=== PATIENT | male | born 1935 | race Caucasian/White ===

== ENCOUNTER 2025-03-13 22:25 | Inpatient (IN) | payer MEDICARE, OTHER, SELFPAY ==
[2025-03-13 22:29] VITALS: BP 172/79; PULSE 88; O2SAT 98
[2025-03-13 22:30] VITALS: BP 170/77; PULSE 91; O2SAT 98
[2025-03-13 22:33] VITALS: BP 170/77; PULSE 80; RESP 18; TEMP 36.7; O2SAT 97; BMI 22.4
[2025-03-13 23:05] VITALS: PULSE 80; RESP 15
--- NOTE | 2025-03-13 23:15 | PC.NURSE ---
Received report at bedside from JORGE Braga
[2025-03-13 23:30] VITALS: PULSE 77; RESP 18; O2SAT 98
[2025-03-13 23:33] LABS: Add Manual Diff / Slide Review NO; Hematocrit 43.9 % (41-53); Hemoglobin 15.3 g/dL (13.5-17.5); Lymphocytes Absolute Auto 700 /uL (1100-4500); Mean Corpuscular HGB Conc 34.7 % (30-36); Mean Corpuscular Hemoglobin 30.1 PG (26-34); Mean Corpuscular Volume 86.7 fL (80-100); Platelet Count 253 X10^3/uL (150-400)
[2025-03-13 23:42] LABS: Alanine Aminotransferase 16 IU/L (<50); Albumin 4.2 g/dL (3.5-5.0); Albumin Globulin Ratio 1.5 (1.0-2.8); Alkaline Phosphatase 76 U/L (38-126); Blood Urea Nitrogen 29 mg/dL (9-20); Calcium 12.3 mg/dL (8.4-10.2); Carbon Dioxide 28 mmol/L (22-32); Chloride 102 mmol/L (98-107); Estimated Glomerular Filt Rate > 60 mL/min (>60); Globulin 2.8 g/dL (1.7-4.1); Glucose 126 mg/dL (70-99); HEMOLYSIS < 15 (0-50); Potassium 4.5 mmol/L (3.4-5.1); Sodium 138 mmol/L (137-145); Total Protein 7.0 g/dL (6.3-8.2)
--- NOTE | 2025-03-13 23:42 | ED.WEAKNESS ---
HPI - Weakness <Alden Fischer MD - Last Filed: 03/14/25 07:30> General Chief complaint: Weakness Stated complaint: Worsening weakness. Time Seen by Provider: 03/13/25 22:28 Source: patient and EMS Mode of arrival: EMS History of Present Illness HPI Narrative: 89-year-old male who is pending a lithotripsy on March 25 2025 at [facility]. He just finished his last dose of antibiotics yesterday for a possible kidney infection. Currently his partner feels as if she is having more trouble taking care of him at home and feels as if patient getting more demented. He does have some baseline dementia and a neurology appointment that is pending for evaluation. Related Data Home Medications ?Medication ?Instructions ?Recorded ?Confirmed finasteride 5 mg tablet 5 mg PO DAILY 03/14/25 03/14/25 sertraline 25 mg tablet 25 mg PO DAILY 03/14/25 03/14/25 tamsulosin 0.4 mg capsule 0.8 mg PO DAILY 03/14/25 03/14/25 Allergies Allergy/AdvReac Type Severity Reaction Status Date / Time No Known Drug Allergies Allergy Verified 03/15/25 11:34 Review of Systems <Alden Fischer MD - Last Filed: 03/14/25 07:30> Review of Systems ROS Unobtainable: All systems reviewed & are unremarkable except as noted in HPI and below Patient History <Alden Fischer MD - Last Filed: 03/14/25 07:30> Social History household members: spouse Smoking Status: Never smoker alcohol intake: former Exam <Alden Fischer MD - Last Filed: 03/14/25 07:30> Narrative Exam Narrative: General: Patient appears to be in no acute distress, acting appropriately Head: normocephalic, atraumatic, HEENT: Pupils equal round reactive, eyes tracking well, neck supple, no JVD Heart: regular rate and rhythm, no murmurs, rubs, or gallops heard Lungs: clear to auscultation, no adventitious sounds Abdomen: soft , nontender, nondistended, positive bowel sounds Neurological: no focal neurological signs, moving all extremities well, alert and oriented x1 Psych: has dementia and short term memory loss Initial Vital Signs Initial Vital Signs: Vital Signs Pulse Rate 88 03/13/25 22:29 Blood Pressure 172/79 H 03/13/25 22:29 Pulse Oximetry 98 03/13/25 22:29 <Grayson Aleman MD - Last Filed: 03/15/25 12:01> Initial Vital Signs Initial Vital Signs: Vital Signs Pulse Rate 88 03/13/25 22:29 Blood Pressure 172/79 H 03/13/25 22:29 Pulse Oximetry 98 03/13/25 22:29 Course <Alden Fischer MD - Last Filed: 03/14/25 07:30> Orders Ordered: Acetaminophen (Acetaminophen 325 Mg Tablet) 650 mg PO Q6H PRN PRN Reason: Fever/Mild Pain (1-3) Finasteride (Finasteride 5 Mg Tablet) 5 mg PO DAILY REPLACED BY [facility] Last Admin: 03/15/25 08:29 Dose: 5 mg Documented By: JEANIE Heparin Sodium (Porcine) (Heparin 5,000 Unit/Ml Vial) 5,000 unit SUBCUT BID REPLACED BY [facility] Last Admin: 03/15/25 08:28 Dose: 5,000 unit Documented By: Admin: 03/14/25 20:58 Dose: Not Given Documented By: Admin: 03/14/25 15:00 Dose: 5,000 unit Documented By: SY Sodium Chloride (Normal Saline 0.9%) 1,000 mls @ 100 mls/hr IV CONT REPLACED BY [facility] Last Admin: 03/15/25 08:29 Dose: 100 mls/hr Documented By: Infusion: 03/15/25 08:29 Dose: Infused Documented By: Admin: 03/14/25 23:35 Dose: 100 mls/hr Documented By: Infusion: 03/14/25 23:35 Dose: Infused Documented By: Admin: 03/14/25 14:00 Dose: 100 mls/hr Documented By: SY Ceftriaxone Sodium 1,000 mg/ (Sodium Chloride) 100 mls @ 200 mls/hr IV Q24H REPLACED BY [facility] Last Infusion: 03/15/25 09:32 Dose: Infused Documented By: Admin: 03/15/25 08:29 Dose: 200 mls/hr Documented By: JEANIE Naloxone HCl (Naloxone 0.4 Mg/Ml Vial) 0.2 mg IV Q2MIN PRN PRN Reason: Opiate Reversal Ondansetron HCl (Ondansetron 4 Mg/2 Ml Inj) 4 mg IV Q8HR PRN PRN Reason: Nausea And Vomiting Sertraline HCl (Sertraline 50 Mg Tablet) 25 mg PO DAILY REPLACED BY [facility] Last Admin: 03/15/25 08:29 Dose: 25 mg Documented By: JEANIE Tamsulosin HCl (Tamsulosin 0.4 Mg Capsule) 0.8 mg PO DAILY REPLACED BY [facility] Last Admin: 03/15/25 08:29 Dose: 0.8 mg Documented By: JEANIE Discontinued Medications Bisacodyl (Bisacodyl 10 Mg Supp) 10 mg DC NOW ONE Stop: 03/14/25 14:05 Last Admin: 03/14/25 15:03 Dose: 10 mg Documented By: SY Diphenhydramine HCl (Diphenhydramine 50 Mg/Ml Vial) 25 mg IV NOW ONE Stop: 03/14/25 05:09 Last Admin: 03/14/25 05:22 Dose: Not Given Documented By: LEONILA Droperidol (Droperidol 2.5 Mg/Ml Vial) 0.625 mg IV NOW ONE Stop: 03/14/25 13:09 Last Admin: 03/14/25 13:16 Dose: 0.625 mg Documented By: KEVIN Sodium Chloride (Normal Saline 0.9%) 500 mls @ 1,000 mls/hr IV BOLUS ONE Stop: 03/14/25 00:10 Last Infusion: 03/14/25 02:20 Dose: Infused Documented By: Admin: 03/14/25 00:51 Dose: 1,000 mls/hr Documented By: LEONILA Ceftriaxone Sodium 1,000 mg/ (Sodium Chloride) 100 mls @ 200 mls/hr IV NOW ONE Stop: 03/14/25 03:30 Last Infusion: 03/14/25 04:40 Dose: Infused Documented By: Admin: 03/14/25 04:07 Dose: 200 mls/hr Documented By: LEONILA Lactated Ringer's (Lactated Ringers) 500 mls @ 1,000 mls/hr IV BOLUS ONE Stop: 03/14/25 12:25 Last Infusion: 03/14/25 15:15 Dose: Infused Documented By: Admin: 03/14/25 14:45 Dose: 1,000 mls/hr Documented By: SY Olanzapine (Olanzapine 2.5 Mg Tablet) 5 mg PO NOW ONE Stop: 03/14/25 05:22 Last Admin: 03/14/25 05:35 Dose: 5 mg Documented By: LEONILA Vital Signs Vital signs: Vital Signs - 8 hr 03/14/25 04:30 03/14/25 04:31 03/14/25 04:31 Pulse Rate 86 98 H Respiratory Rate 34 H 29 H Blood Pressure 121/75 Pulse Oximetry 99 99 Oxygen Delivery Method Room Air Room Air 03/14/25 05:00 03/14/25 05:01 03/14/25 05:01 Pulse Rate 112 H 127 H Respiratory Rate 28 H 31 H Blood Pressure 132/70 Pulse Oximetry 98 Oxygen Delivery Method Room Air 03/14/25 07:09 03/14/25 07:30 03/14/25 08:00 Pulse Rate 88 90 Respiratory Rate 22 19 24 Blood Pressure Pulse Oximetry 98 Oxygen Delivery Method 03/14/25 08:30 03/14/25 08:34 03/14/25 08:34 Pulse Rate 76 78 Respiratory Rate 20 22 Blood Pressure 135/105 H Pulse Oximetry Oxygen Delivery Method 03/14/25 08:37 03/14/25 08:37 03/14/25 08:58 Pulse Rate 77 Respiratory Rate 26 H Blood Pressure 132/65 115/60 Pulse Oximetry Oxygen Delivery Method 03/14/25 08:58 03/14/25 09:00 03/14/25 09:00 Pulse Rate 80 69 Respiratory Rate 28 H 17 Blood Pressure 110/58 L Pulse Oximetry 97 99 Oxygen Delivery Method 03/14/25 09:30 03/14/25 09:30 03/14/25 10:04 Pulse Rate 67 62 Respiratory Rate 27 H 14 Blood Pressure 109/83 Pulse Oximetry Oxygen Delivery Method 03/14/25 10:20 03/14/25 10:20 Pulse Rate 76 Respiratory Rate 21 Blood Pressure 103/68 Pulse Oximetry Oxygen Delivery Method <Grayson Aleman MD - Last Filed: 03/15/25 12:01> Orders Ordered: Acetaminophen (Acetaminophen 325 Mg Tablet) 650 mg PO Q6H PRN PRN Reason: Fever/Mild Pain (1-3) Finasteride (Finasteride 5 Mg Tablet) 5 mg PO DAILY REPLACED BY [facility] Last Admin: 03/15/25 08:29 Dose: 5 mg Documented By: JEANIE Heparin Sodium (Porcine) (Heparin 5,000 Unit/Ml Vial) 5,000 unit SUBCUT BID REPLACED BY [facility] Last Admin: 03/15/25 08:28 Dose: 5,000 unit Documented By: Admin: 03/14/25 20:58 Dose: Not Given Documented By: Admin: 03/14/25 15:00 Dose: 5,000 unit Documented By: SY Sodium Chloride (Normal Saline 0.9%) 1,000 mls @ 100 mls/hr IV CONT REPLACED BY [facility] Last Admin: 03/15/25 08:29 Dose: 100 mls/hr Documented By: Infusion: 03/15/25 08:29 Dose: Infused Documented By: Admin: 03/14/25 23:35 Dose: 100 mls/hr Documented By: Infusion: 03/14/25 23:35 Dose: Infused Documented By: Admin: 03/14/25 14:00 Dose: 100 mls/hr Documented By: SY Ceftriaxone Sodium 1,000 mg/ (Sodium Chloride) 100 mls @ 200 mls/hr IV Q24H REPLACED BY [facility] Last Infusion: 03/15/25 09:32 Dose: Infused Documented By: Admin: 03/15/25 08:29 Dose: 200 mls/hr Documented By: JEANIE Naloxone HCl (Naloxone 0.4 Mg/Ml Vial) 0.2 mg IV Q2MIN PRN PRN Reason: Opiate Reversal Ondansetron HCl (Ondansetron 4 Mg/2 Ml Inj) 4 mg IV Q8HR PRN PRN Reason: Nausea And Vomiting Sertraline HCl (Sertraline 50 Mg Tablet) 25 mg PO DAILY REPLACED BY [facility] Last Admin: 03/15/25 08:29 Dose: 25 mg Documented By: JEANIE Tamsulosin HCl (Tamsulosin 0.4 Mg Capsule) 0.8 mg PO DAILY REPLACED BY [facility] Last Admin: 03/15/25 08:29 Dose: 0.8 mg Documented By: JEANIE Discontinued Medications Bisacodyl (Bisacodyl 10 Mg Supp) 10 mg DC NOW ONE Stop: 03/14/25 14:05 Last Admin: 03/14/25 15:03 Dose: 10 mg Documented By: SY Diphenhydramine HCl (Diphenhydramine 50 Mg/Ml Vial) 25 mg IV NOW ONE Stop: 03/14/25 05:09 Last Admin: 03/14/25 05:22 Dose: Not Given Documented By: LEONILA Droperidol (Droperidol 2.5 Mg/Ml Vial) 0.625 mg IV NOW ONE Stop: 03/14/25 13:09 Last Admin: 03/14/25 13:16 Dose: 0.625 mg Documented By: KEVIN Sodium Chloride (Normal Saline 0.9%) 500 mls @ 1,000 mls/hr IV BOLUS ONE Stop: 03/14/25 00:10 Last Infusion: 03/14/25 02:20 Dose: Infused Documented By: Admin: 03/14/25 00:51 Dose: 1,000 mls/hr Documented By: LEONILA Ceftriaxone Sodium 1,000 mg/ (Sodium Chloride) 100 mls @ 200 mls/hr IV NOW ONE Stop: 03/14/25 03:30 Last Infusion: 03/14/25 04:40 Dose: Infused Documented By: Admin: 03/14/25 04:07 Dose: 200 mls/hr Documented By: LEONILA Lactated Ringer's (Lactated Ringers) 500 mls @ 1,000 mls/hr IV BOLUS ONE Stop: 03/14/25 12:25 Last Infusion: 03/14/25 15:15 Dose: Infused Documented By: Admin: 03/14/25 14:45 Dose: 1,000 mls/hr Documented By: SY Olanzapine (Olanzapine 2.5 Mg Tablet) 5 mg PO NOW ONE Stop: 03/14/25 05:22 Last Admin: 03/14/25 05:35 Dose: 5 mg Documented By: LEONILA Vital Signs Vital signs: Vital Signs - 8 hr 03/14/25 04:30 03/14/25 04:31 03/14/25 04:31 Pulse Rate 86 98 H Respiratory Rate 34 H 29 H Blood Pressure 121/75 Pulse Oximetry 99 99 Oxygen Delivery Method Room Air Room Air 03/14/25 05:00 03/14/25 05:01 03/14/25 05:01 Pulse Rate 112 H 127 H Respiratory Rate 28 H 31 H Blood Pressure 132/70 Pulse Oximetry 98 Oxygen Delivery Method Room Air 03/14/25 07:09 03/14/25 07:30 03/14/25 08:00 Pulse Rate 88 90 Respiratory Rate 22 19 24 Blood Pressure Pulse Oximetry 98 Oxygen Delivery Method 03/14/25 08:30 03/14/25 08:34 03/14/25 08:34 Pulse Rate 76 78 Respiratory Rate 20 22 Blood Pressure 135/105 H Pulse Oximetry Oxygen Delivery Method 03/14/25 08:37 03/14/25 08:37 03/14/25 08:58 Pulse Rate 77 Respiratory Rate 26 H Blood Pressure 132/65 115/60 Pulse Oximetry Oxygen Delivery Method 03/14/25 08:58 03/14/25 09:00 03/14/25 09:00 Pulse Rate 80 69 Respiratory Rate 28 H 17 Blood Pressure 110/58 L Pulse Oximetry 97 99 Oxygen Delivery Method 03/14/25 09:30 03/14/25 09:30 03/14/25 10:04 Pulse Rate 67 62 Respiratory Rate 27 H 14 Blood Pressure 109/83 Pulse Oximetry Oxygen Delivery Method 03/14/25 10:20 03/14/25 10:20 Pulse Rate 76 Respiratory Rate 21 Blood Pressure 103/68 Pulse Oximetry Oxygen Delivery Method 03/14/2025, 12 14th p.m.. I got out this morning from my colleague to follow up bladder retention. The urologist was call to help for catheter placement. His CBC showed WBC 11.6 otherwise normal CBC. His BMP showed BUN 29, calcium 12.3 otherwise normal BNP. His LFT was normal. His ammonia was normal. His UA showed UTI. His chest x-ray showed no acute finding. 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 I went to talk to his and got more started the patient was brought in today for increasing confusion from the baseline dementia and diarrhea for 5 days seen after ciprofloxacin for UTI. He had bilateral ureteric stent placement 4 weeks ago and supposed to see urologist again on 03/25/2025. His white noticed decreased urine output since yesterday. I discussed the case with our hospitalist and the patient was accepted to the hospital for hypercalcemia, stercoral colitis, increased confusion, UTI. MDM - Weakness <Alden Fischer MD - Last Filed: 03/14/25 07:30> Lab Data 03/15/25 05:50 03/15/25 05:50 Labs: Lab Results 03/13/25 03/13/25 03/14/25 Range/Units 23:00 23:50 03:02 WBC 11.6 H (4.5-11.0) X10^3/uL RBC 5.07 (4.5-5.9) X10^6/uL Hgb 15.3 (13.5-17.5) g/dL Hct 43.9 (41-53) % MCV 86.7 (80-100) fL MCH 30.1 (26-34) PG MCHC 34.7 (30-36) % RDW 13.4 (11.6-14.8) % Plt Count 253 (150-400) X10^3/uL Neut % (Auto) 85.5 H (50-75) % Lymph % (Auto) 6.4 L (25-40) % [place] % (Auto) 7.7 (3-14) % Eos % (Auto) 0.2 L (2-4) % Baso % (Auto) 0.2 (0-2) % Neut # (Auto) 9900 H (0198-2550) /uL Lymph # (Auto) 700 L (9116-7580) /uL [place] # (Auto) 900 (0-900) /uL Eos # (Auto) 0 (0-450) /uL Baso # (Auto) 0 (0-100) /uL Sodium 138 (137-145) mmol/L Potassium 4.5 (3.4-5.1) mmol/L Chloride 102 (98-107) mmol/L Carbon Dioxide 28 (22-32) mmol/L BUN 29 H (9-20) mg/dL Creatinine 1.05 (0.66-1.25) mg/dL Estimated GFR > 60 (>60) mL/min BUN/Creatinine Ratio 27.6 H (6-22) Glucose 126 H (70-99) mg/dL Lactate 1.0 (0.7-2.1) mmol/L Calcium 12.3 H (8.4-10.2) mg/dL Total Bilirubin 1.0 (0.2-1.3) mg/dL AST 24 (17-59) IU/L ALT 16 (<50) IU/L Alkaline Phosphatase 76 (38-126) U/L Ammonia < 9 L (9-30) umol/L Total Protein 7.0 (6.3-8.2) g/dL Albumin 4.2 (3.5-5.0) g/dL Globulin 2.8 (1.7-4.1) g/dL Albumin/Globulin Ratio 1.5 (1.0-2.8) Urine RBC >100/hpf H (0-5/HPF) Urine WBC 30-100/hpf H (0-5/HPF) Ur Squamous Epith Cells 0-1 /hpf (0-5/HPF) Ur Transition Epith Cell 0-1/hpf (0-5/HPF) Calcium Oxalate Crystal Occasional H Urine Bacteria Moderate (10-30) H (None) Ur Culture Indicated? Specimen cultured Vol Urine Centrifuged 10ml (spun) Urine Dip Bedside Urine Glucose Negative Bedside Urine Bilirubin - Negative Bedside Urine Ketone +/- 5 Urine Specific [place] 1.030 Bedside Urine Occult Blood +++ Bedside Urine pH 6.0 Bedside Urine Protein +++ 300 Bedside Urine Urobilinogen - Negative Bedside Urine Nitrite - Negative Bedside Urine Leukocytes + 70 Esterase MDM Narrative Medical decision making narrative: 89-year-old male who is pending a lithotripsy. Patient has some baseline dementia but his partner fell as if his dementia was worsening. Patient was found to have over a L of of fluid from the bladder scan. Multiple attempts were made to get a Luna catheter placed but were unsuccessful. Patient was kept here overnight in order the consult our urologist for potential Luna catheter placement. Patient is signed out to next physician Dr. Medina <Grayson Aleman MD - Last Filed: 03/15/25 12:01> Lab Data Labs: Lab Results 03/13/25 03/13/25 03/14/25 Range/Units 23:00 23:50 03:02 WBC 11.6 H (4.5-11.0) X10^3/uL RBC 5.07 (4.5-5.9) X10^6/uL Hgb 15.3 (13.5-17.5) g/dL Hct 43.9 (41-53) % MCV 86.7 (80-100) fL MCH 30.1 (26-34) PG MCHC 34.7 (30-36) % RDW 13.4 (11.6-14.8) % Plt Count 253 (150-400) X10^3/uL Neut % (Auto) 85.5 H (50-75) % Lymph % (Auto) 6.4 L (25-40) % [place] % (Auto) 7.7 (3-14) % Eos % (Auto) 0.2 L (2-4) % Baso % (Auto) 0.2 (0-2) % Neut # (Auto) 9900 H (4027-4919) /uL Lymph # (Auto) 700 L (0619-7883) /uL [place] # (Auto) 900 (0-900) /uL Eos # (Auto) 0 (0-450) /uL Baso # (Auto) 0 (0-100) /uL Sodium 138 (137-145) mmol/L Potassium 4.5 (3.4-5.1) mmol/L Chloride 102 (98-107) mmol/L Carbon Dioxide 28 (22-32) mmol/L BUN 29 H (9-20) mg/dL Creatinine 1.05 (0.66-1.25) mg/dL Estimated GFR > 60 (>60) mL/min BUN/Creatinine Ratio 27.6 H (6-22) Glucose 126 H (70-99) mg/dL Lactate 1.0 (0.7-2.1) mmol/L Calcium 12.3 H (8.4-10.2) mg/dL Total Bilirubin 1.0 (0.2-1.3) mg/dL AST 24 (17-59) IU/L ALT 16 (<50) IU/L Alkaline Phosphatase 76 (38-126) U/L Ammonia < 9 L (9-30) umol/L Total Protein 7.0 (6.3-8.2) g/dL Albumin 4.2 (3.5-5.0) g/dL Globulin 2.8 (1.7-4.1) g/dL Albumin/Globulin Ratio 1.5 (1.0-2.8) Urine RBC >100/hpf H (0-5/HPF) Urine WBC 30-100/hpf H (0-5/HPF) Ur Squamous Epith Cells 0-1 /hpf (0-5/HPF) Ur Transition Epith Cell 0-1/hpf (0-5/HPF) Calcium Oxalate Crystal Occasional H Urine Bacteria Moderate (10-30) H (None) Ur Culture Indicated? Specimen cultured Vol Urine Centrifuged 10ml (spun) Urine Dip Bedside Urine Glucose Negative Bedside Urine Bilirubin - Negative Bedside Urine Ketone +/- 5 Urine Specific [place] 1.030 Bedside Urine Occult Blood +++ Bedside Urine pH 6.0 Bedside Urine Protein +++ 300 Bedside Urine Urobilinogen - Negative Bedside Urine Nitrite - Negative Bedside Urine Leukocytes + 70 Esterase MDM Narrative Medical decision making narrative: 89-year-old male who is pending a lithotripsy. Patient has some baseline dementia but his partner fell as if his dementia was worsening. Patient was found to have over a L of of fluid from the bladder scan. Multiple attempts were made to get a Luna catheter placed but were unsuccessful. Patient was kept here overnight in order the consult our urologist for potential Luna catheter placement. Patient is signed out to next physician Dr. Medina 03/14/2025, 12 14th p.m.. I got out this morning from my colleague to follow up bladder retention. The urologist was call to help for catheter placement. His CBC showed WBC 11.6 otherwise normal CBC. His BMP showed BUN 29, calcium 12.3 otherwise normal BNP. His LFT was normal. His ammonia was normal. His UA showed UTI. His chest x-ray showed no acute finding. 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 I went to talk to his and got more started the patient was brought in today for increasing confusion from the baseline dementia and diarrhea for 5 days seen after ciprofloxacin for UTI. He had bilateral ureteric stent placement 4 weeks ago and supposed to see urologist again on 03/25/2025. His white noticed decreased urine output since yesterday. I discussed the case with our hospitalist and the patient was accepted to the hospital for hypercalcemia, stercoral colitis, increased confusion, UTI. Discharge Plan Departure Patient Disposition: Admitted as Observation Clinical Impression: Hypercalcemia, Acute UTI, Stercoral colitis, Confusion Admit Date/Time: 03/14/25 12:33 Admit Provider: Venkatesh Luna
[2025-03-13 23:43] LABS: Lactate (Lactic Acid) 1.0 mmol/L (0.7-2.1)
[2025-03-14] VITALS (36 sets, daily range): BP systolic 103–153; BP diastolic 52–105; PULSE 58–127; RESP 14–34; TEMP 36.8; O2SAT 97–100; BMI 22.4
[2025-03-14 00:13] LABS: Ammonia (NH3) < 9 umol/L (9-30)
[2025-03-14] MEDS: SODIUM CHLORIDE 0.9% 500 ML 1000 ML IV (00:51)
--- NOTE | 2025-03-14 01:30 | PC.NURSE ---
RN attempted to insert 16 israeli hammond. Insertion was unsuccessful as resistance was met. RN attempted to insert 14 israeli coude hammond, insertion was once again unsuccessful due to resistance.
[2025-03-14 03:15] LABS: Culture Indicated Urine Specimen Cultured
--- NOTE | 2025-03-14 08:15 | P.CONS_ITS ---
History of Present Illness Consult details Date Patient Seen: 03/14/25 Time Patient Seen: 07:45 Chief complaint: Worsening weakness. Reason for consult: Urinary retention, difficult hammond catheter placement Narrative: 89 y/o M brought into ER for evaluation of worsening weakness and dementia. He is followed by Urology clinic at [facility]. He is very confused and not able to answer questions. His evaluation at ER was notable for a WBC of 11.6, sCr of 1.05 and urinary retention. Multiple attempts were made by nursing staff to place a hammond catheter, Urology was ultimately consulted for assistance. Meds Home Medications and Allergies Home Medications ?Medication ?Instructions ?Recorded ?Confirmed ?Type ciprofloxacin HCl 500 mg tablet 500 mg PO BID 7 days # 0 tabs 05/12/16 Rx (Cipro) Allergies Allergy/AdvReac Type Severity Reaction Status Date / Time No Allergy Information Allergy Unverified 03/13/25 22:33 Available Review of Systems Review of Systems Narrative: Unable to obtain secondary to his dementia Exam Vital Signs (past 8 hours): - 03/14/25 00:30 03/14/25 01:00 03/14/25 01:30 Pulse Rate 80 74 81 Respiratory Rate 21 28 H 22 Blood Pressure Pulse Oximetry 97 97 Oxygen Delivery Method Room Air Room Air 03/14/25 02:00 03/14/25 02:30 03/14/25 02:32 Pulse Rate 80 77 Respiratory Rate 20 19 Blood Pressure 153/72 H Pulse Oximetry 99 Oxygen Delivery Method Room Air 03/14/25 02:32 03/14/25 02:33 03/14/25 02:33 Pulse Rate 91 H 91 H Respiratory Rate 19 21 Blood Pressure 141/72 H Pulse Oximetry 98 98 Oxygen Delivery Method Room Air Room Air 03/14/25 02:34 03/14/25 02:34 03/14/25 02:40 Pulse Rate 91 H 87 Respiratory Rate 25 H 21 Blood Pressure 150/70 H Pulse Oximetry 98 99 Oxygen Delivery Method Room Air Room Air 03/14/25 02:40 03/14/25 02:41 03/14/25 02:41 Pulse Rate 88 Respiratory Rate 17 Blood Pressure 136/97 H 153/92 H Pulse Oximetry 100 Oxygen Delivery Method Room Air 03/14/25 04:19 03/14/25 04:22 03/14/25 04:22 Pulse Rate 85 83 Respiratory Rate 15 15 Blood Pressure 119/79 Pulse Oximetry 97 Oxygen Delivery Method Room Air 03/14/25 04:30 03/14/25 04:31 03/14/25 04:31 Pulse Rate 86 98 H Respiratory Rate 34 H 29 H Blood Pressure 121/75 Pulse Oximetry 99 99 Oxygen Delivery Method Room Air Room Air 03/14/25 05:00 03/14/25 05:01 03/14/25 05:01 Pulse Rate 112 H 127 H Respiratory Rate 28 H 31 H Blood Pressure 132/70 Pulse Oximetry 98 Oxygen Delivery Method Room Air Oxygen Delivery Method Room Air Narrative Exam Narrative: GEN: Alert and oriented X3. No acute distress. Well-nourished. EYES: PERRLA, EOMI. HENT: Moist mucus membranes, no scleral icterus, normal neck ROM. RESP: Unlabored breathing, equal rise and fall of chest bilaterally, no cyanosis appreciated. CV: No peripheral edema, unremarkable heart rate. ABD: Soft, non-tender, non-distended, no palpable masses. : Uncircumcised penis, no urethral discharge, no meatal stenosis. Unsuccessful attempt at placement of an 18Fr coude catheter. Using the 16Fr flexible cystoscope, this was advanced into his bladder. 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 A 0.035 sensor tip ureteral guidewire was then advanced through the cystoscope and into his bladder. The cystoscope was removed and a 16Fr [place] tip catheter was advanced over the guidewire and into his bladder. Drainage of more than 1L of clear yellow urine was noted. 10cc of sterile water was utilized for balloon insufflation. EXT: No edema, clubbing or cyanosis. SKIN: No rashes or lesions. NEURO: No focal neurologic deficits, CN II-XII grossly intact. PSYCH: Cooperative, appropriate mood and affect. Objective Labs 03/13/25 23:00 03/13/25 23:00 Labs: Laboratory Results - last 24 hr 03/13/25 03/13/25 03/14/25 23:00 23:50 03:02 WBC 11.6 H RBC 5.07 Hgb 15.3 Hct 43.9 MCV 86.7 MCH 30.1 MCHC 34.7 RDW 13.4 Plt Count 253 Neut % (Auto) 85.5 H Lymph % (Auto) 6.4 L [place] % (Auto) 7.7 Eos % (Auto) 0.2 L Baso % (Auto) 0.2 Neut # (Auto) 9900 H Lymph # (Auto) 700 L [place] # (Auto) 900 Eos # (Auto) 0 Baso # (Auto) 0 Sodium 138 Potassium 4.5 Chloride 102 Carbon Dioxide 28 BUN 29 H Creatinine 1.05 Estimated GFR > 60 BUN/Creatinine Ratio 27.6 H Glucose 126 H Lactate 1.0 Calcium 12.3 H Total Bilirubin 1.0 AST 24 ALT 16 Alkaline Phosphatase 76 Ammonia < 9 L Total Protein 7.0 Albumin 4.2 Globulin 2.8 Albumin/Globulin Ratio 1.5 Urine RBC >100/hpf H Urine WBC 30-100/hpf H Ur Squamous Epith Cells 0-1 /hpf Ur Transition Epith Cell 0-1/hpf Calcium Oxalate Crystal Occasional H Urine Bacteria Moderate (10-30) H Ur Culture Indicated? 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 Recommend bladder and urethral rest for the next 10-14 days. Has scheduled follow-up with Urology at [facility]. They will manage his hammond catheter moving forward, unless he would prefer [facility]. Time-Based Coding :: [TOTAL MINUTES] spent with patient and on the chart (including review of chart, obtaining history, exam, reviewing outside data, placing orders, documenting exam and treatment plan, and counseling patient) on [DATE]. PROFEE Charge Codes Inpatient or Observation consultation: [id number]
--- NOTE | 2025-03-14 08:20 | P.PCN_ITS ---
Procedures Date/Time Date of procedure: 03/14/25 Time of procedure: 08:00 General Procedure description: Cystoscopy: CPT Code 03911 Indication: 89 y/o M w/ urinary retention and difficult hammond catheter placement. Unable to obtain consent secondary to his dementia, proper positioning and standard sterile prep technique, 10cc of topical lidocaine gel was inserted into the urethra and a penile clamp was placed to allow for local anesthetic. The 16Fr flexible cystoscope was inserted into his urethra and easily advanced into his bladder. 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 A 0.035 sensor tip ureteral guidewire was then advanced through the cystoscope to aid in placement of a 16Fr napaimute tip catheter. Drainage of more than 1L of clear yellow urine was noted. He tolerated the procedure well without any complications. Complications: none IH PROFEE Cable Worker Helper Document charge(s): Yes
--- NOTE | 2025-03-14 08:30 | DI.RAD.S_ITS ---
PROCEDURE: XR CHEST 1V INDICATIONS: Generalized weakness TECHNIQUE: One view of the chest was acquired. COMPARISON: None. FINDINGS: Surgical changes and devices: None. Lungs and pleura: Lungs are clear. No pleural effusions or pneumothorax. Mediastinum: Mediastinal contours appear normal. Heart size is normal. Bones and chest wall: No suspicious bony lesions. Overlying soft tissues appear unremarkable. IMPRESSION: No acute cardiopulmonary abnormality is seen. Dictated by: Joni Campbell M.D. on 03/14/2025 at 8:52 Approved by: Joni Campbell M.D. on 03/14/2025 at 8:52
--- NOTE | 2025-03-14 08:30 | DI.CT.S_ITS ---
PROCEDURE: CT ABDOMEN PELVIS W CON INDICATIONS: Bladder retention. UTI. Generalized weakness TECHNIQUE: After the administration of intravenous contrast, axial sections acquired from the lung bases to the pubic symphysis. Coronal and sagittal reformats were performed. For radiation dose reduction, the following was used: automated exposure control, adjustment of mA and/or kV according to patient size. COMPARISON: [facility], CT, CT KUB, 02/07/2025, 14:26. FINDINGS: Image quality: Diagnostic. Lower Chest: No significant findings. ABDOMEN: Liver: No solid mass. Gallbladder: No radiopaque gallstones or wall thickening. Biliary ducts: No biliary dilation. Pancreas: No ductal dilation. Spleen: Size is within normal limits. Adrenal Glands: No adrenal nodules. Kidneys and Ureters: Interval placement of bilateral double-J ureteral stents. A previous relatively large proximal right ureteral stone has been pushed back up into the lower pole calyx Left ureteral stones are present. There is no residual hydronephrosis. There is inflammatory change in the fat and mild inflammatory fluid at the level of the right renal pelvis and proximal right ureter, potentially related to sequelae of stone removal. There is some inflammatory change in the fat surrounding the proximal left ureter, also likely related to treatment with ureteral stent placement. There are residual bilateral nonobstructing renal parenchymal stones. Stomach and Bowel: Normal colonic caliber, without significant wall thickening. Moderately large fecal impaction in the rectum with associated stercoral colitis. Peritoneum: No abnormal intraperitoneal fluid. No free air. Ventral Wall: No significant ventral hernia. Abdominal Nodes: No retroperitoneal or mesenteric adenopathy by size criteria. Vessels: Aorta and inferior vena cava are normal in size. PELVIS: Pelvic Organs: Prostatomegaly. Bladder: A Luna catheter decompresses the bladder. Bilateral ureteral stents terminate in the bladder. Pelvic Nodes: No enlarged lymph nodes. Miscellaneous: Small bilateral fat containing inguinal hernias are seen. Bones: No aggressive osseous abnormality. Total right hip arthroplasty. Lumbar degenerative change. 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 IMPRESSION: 1. A Luna catheter decompresses the bladder completely. There are bilateral ureteral stents terminating in the bladder. 2. Status post bilateral double-J ureteral stent placement with resolution of hydronephrosis. A large right sided stone was previously in the proximal ureter, but is now in a lower pole calyx. There are left ureteral stones along the course of the ureteral stent. There is inflammatory change in the surrounding fat subjacent to the ureters, right greater than left, likely related to treatment. 3. Moderately large rectal fecal impaction with associated stercoral colitis. 4. Prostatomegaly. 5. 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 Dictated by: Joni Campbell M.D. on 03/14/2025 at 10:43 Approved by: Joni Campbell M.D. on 03/14/2025 at 10:56
--- NOTE | 2025-03-14 12:45 | PC.NURSE ---
Patient not able to sit still for CT scan, patient is brought back to room. Patient is trying to pull at lines, Provider puts in order for droperidol
[2025-03-14] MEDS: droPERidol 2.5 MG/ML VIAL 0.625 MG IV (13:16)
--- NOTE | 2025-03-14 13:35 | PM.HP.1 ---
History of Present Illness History of Present Illness Date Patient Seen: 03/14/25 Time Patient Seen: 14:04 Chief complaint: Worsening weakness. Narrative: The patient was a an 89-year-old male who was brought in for weakness. He was status post bilateral ureter stent placement at [facility] 4 weeks ago. The patient was followed by Dr. Sanders of Urology. In the emergency department, he was found to have evidence of urine retention. A Luna can not be placed and Urology performed cystoscopy and placed a catheter over a wire with 1 L of urine out. Imaging revealed hydroureter nephrosis as well as evidence of constipation and large rectal fecal burden. He was takes care of him, notes he has been weak for the last several days and had anorexia. The patient does have severe dementia and really can not communicate. He does appear comfortable. [facility] Social History household members: spouse Meds Home Medications and Allergies Home Medications ?Medication ?Instructions ?Recorded ?Confirmed ?Type ciprofloxacin HCl 500 mg tablet 500 mg PO BID 7 days #0 tabs 05/12/16 Rx (Cipro) Allergies Allergy/AdvReac Type Severity Reaction Status Date / Time No Allergy Information Allergy Unverified 03/13/25 22:33 Available Review of Systems Review of Systems Narrative: Not obtainable due to cognition. Exam Vital Signs (past 8 hours): - 03/14/25 07:09 03/14/25 07:30 03/14/25 08:00 Pulse Rate 88 90 Respiratory Rate 22 19 24 Blood Pressure Pulse Oximetry 98 03/14/25 08:30 03/14/25 08:34 03/14/25 08:34 Pulse Rate 76 78 Respiratory Rate 20 22 Blood Pressure 135/105 H Pulse Oximetry 03/14/25 08:37 03/14/25 08:37 03/14/25 08:58 Pulse Rate 77 Respiratory Rate 26 H Blood Pressure 132/65 115/60 Pulse Oximetry 03/14/25 08:58 03/14/25 09:00 03/14/25 09:00 Pulse Rate 80 69 Respiratory Rate 28 H 17 Blood Pressure 110/58 L Pulse Oximetry 97 99 03/14/25 09:30 03/14/25 09:30 03/14/25 10:04 Pulse Rate 67 62 Respiratory Rate 14 Blood Pressure 109/83 Pulse Oximetry 03/14/25 10:20 03/14/25 10:20 03/14/25 10:30 Pulse Rate 76 81 Respiratory Rate 21 22 Blood Pressure 103/68 Pulse Oximetry 03/14/25 11:00 03/14/25 11:01 03/14/25 11:01 Pulse Rate 73 61 Respiratory Rate 22 Blood Pressure 105/79 Pulse Oximetry 03/14/25 11:30 03/14/25 11:30 03/14/25 12:00 Pulse Rate 58 L 60 Respiratory Rate 17 19 Blood Pressure 108/55 L Pulse Oximetry 03/14/25 12:00 03/14/25 12:30 03/14/25 13:16 Pulse Rate 59 L 98 H Respiratory Rate 16 23 Blood Pressure 105/52 L Pulse Oximetry 98 03/14/25 13:16 Pulse Rate Respiratory Rate Blood Pressure 126/73 Pulse Oximetry Oxygen Delivery Method Room Air Narrative Exam Narrative: Relatively minimal communication verbally, alert and oriented, fluent speech, calm. Normocephalic skull, EOMI, anicteric sclera, symmetric pupils. Oropharynx unremarkable, no droop. Neck supple, midline trachea, no adenopathy. Lungs clear, normal rate and effort. Heart regular, no murmur gallop or rub. Abdomen is soft, non distended and non tender. Extremities are free of edema. Skin is free of rash or lesions. Joints are not swollen or deformed. Judgment appears to be normal. Objective Imaging Multiple studies:: Radiologist's impression: Chest x-ray: No acute cardiopulmonary abnormality is seen. Abdomen pelvis CT: 1. A Luna catheter decompresses the bladder completely. There are bilateral ureteral stents terminating in the bladder. 2. Status post bilateral double-J ureteral stent placement with resolution of hydronephrosis. A large right sided stone was previously in the proximal ureter, but is now in a lower pole calyx. There are left ureteral stones along the course of the ureteral stent. There is inflammatory change in the surrounding fat subjacent to the ureters, right greater than left, likely related to treatment. 3. Moderately large rectal fecal impaction with associated stercoral colitis. 4. Prostatomegaly. 5. 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 Labs 03/13/25 23:00 03/13/25 23:00 Labs: Laboratory Results - last 24 hr 03/13/25 03/13/25 03/14/25 23:00 23:50 03:02 WBC 11.6 H RBC 5.07 Hgb 15.3 Hct 43.9 MCV 86.7 MCH 30.1 MCHC 34.7 RDW 13.4 Plt Count 253 Neut % (Auto) 85.5 H Lymph % (Auto) 6.4 L [place] % (Auto) 7.7 Eos % (Auto) 0.2 L Baso % (Auto) 0.2 Neut # (Auto) 9900 H Lymph # (Auto) 700 L [place] # (Auto) 900 Eos # (Auto) 0 Baso # (Auto) 0 Sodium 138 Potassium 4.5 Chloride 102 Carbon Dioxide 28 BUN 29 H Creatinine 1.05 Estimated GFR > 60 BUN/Creatinine Ratio 27.6 H Glucose 126 H Lactate 1.0 Calcium 12.3 H Total Bilirubin 1.0 AST 24 ALT 16 Alkaline Phosphatase 76 Ammonia < 9 L Total Protein 7.0 Albumin 4.2 Globulin 2.8 Albumin/Globulin Ratio 1.5 Urine RBC >100/hpf H Urine WBC 30-100/hpf H Ur Squamous Epith Cells 0-1 /hpf Ur Transition Epith Cell 0-1/hpf Calcium Oxalate Crystal Occasional H Urine Bacteria Moderate (10-30) H Ur Culture Indicated? Specimen cultured Vol Urine Centrifuged 10ml (spun) Assessment & Plan Assessment & Plan narrative: 1. UTI, active. 2. Urine retention necessitating placement of Luna catheter with 1 L output, active. 3. Constipation with large rectal fecal burden, active. 4. Nephrolithiasis with recent bilateral stent placement at [facility]. 5. Severe dementia, active. PLAN: -IV fluids for volume depletion -Luna catheter for retention -ceftriaxone for urinary tract infection and monitor cultures. -old records from [facility] -Dulcolax suppository -notify Dr. Whitley of Urology of the patient was admission. Reviewed a POLST with the patient's , she had not seen this before. She was proxy decision maker. He was currently full code. She will review this overnight and we will discuss again tomorrow. Anticipate 1 midnight in the hospital, supports observation status. Time-Based Coding :: 35 min spent with patient and on the chart (including review of chart, obtaining history, exam, reviewing outside data, placing orders, documenting exam and treatment plan, and counseling patient) on 03/14. Quality MIPS - Admit I confirm the patient?s Advance Care Plan is present, Code status is documented, Surrogate decision maker is in patient?s record [If Yes, STOP here]: Yes MIPS - Meds 'Current medications' to include all prescriptions, [id number] products, herbals, cannabis/cannabidiol products, and vitamin/mineral/dietary (nutritional) supplements. I have utilized all available resources to obtain, update, or review the patient?s current medications. [If Yes, STOP here]: Yes
[2025-03-14] MEDS: SODIUM CHLORIDE 0.9% 1,000 ML 100 ML IV ×2 (14:00→23:35)
[2025-03-14] MEDS: LACTATED RINGERS 500 ML 1000 ML IV (14:45)
--- NOTE | 2025-03-14 14:53 | CM.DANOTE ---
DCP Assessment Note: Pt is a 89yo male, resident of [place], is admitted for stercoral colitis and acute UTI. Pt lives in a house with , Rylie. Pt's Primary Care Provider is Dr. Dario Villar and insurance is Medicare and for Life. Reviewed chart and discussed with multidisciplinary team pt's medical status and initial discharge needs. Per ED Provider, pt to be admitted for IV abx, hammond placed and Urology consult. DCP met w/patient at bedside; introduced self and role. Pt somnolent during assessment, pt requested to voice concerns with Operations Analyst. Pt , Rylie, states she has been concerned for pt as he has declined in mobility and cognizance in the last few days. reports this started when pt completed prescribed PO antibiotic on Friday, 03/12. Patient states pt typically utilizes a FWW to get around the house. Pt reports the following pre-scheduled appts: - Lithotripsy scheduled at [facility] with Dr. Kirt Maldonado on 03/25/25 for kidney stones. 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 PROFESSIONAL ENGINEER discussed plan of care with , pt stated preference for SNF Rehab to get pt back to baseline; states the senior living goal is to keep pt at home with her as primary caregiver (no resources for senior living care placement at this time). PROFESSIONAL ENGINEER reviewed Medicare Choice List and pt states her main preference would be to remain on [facility] if possible. Pt hopeful lithotripsy will be moved to a sooner date. Plan: Anticipating SNF Rehab vs. Home with Home health, plan of care evolving. Pt can transport home. CM team will follow closely for coordination of discharge plans. PITO [place] Discharge Planning/Care Management CM Discharge Assessment Start: 03/14/25 12:37 Freq: Status: Active Protocol: Document 03/14/25 13:02 MW (Rec: 03/14/25 13:08 MW [id number]) Discharge Planning Assessment Assigned Discharge THEODORE Thornton Auto Painter Provider Dr. Dario Villar ([facility]) Insurance Medicare, DPOA/Assigned Rylie, Spouse Designee Name Contact Information Advance Directives? No Has Patient been No admitted in last 30 days? Prior Living House Arrangements Comment [facility] Household Members spouse Type of Relies on Others transporation used prior to admit Independent with ADL No 's Is patient alert and No oriented? Caregiver for No Another DME Already Rented / FWW / Walker,Cane Owned Patient/Family Fdc Facility Preference Discharge Plan Fdc Facility Review Status In Process Please Provide Date 03/14/25 Initial DC Assessment Was Performed Next Review Type Continued Stay Review
[2025-03-14] MEDS: HEPARIN 5,000 UNIT/ML VIAL 5000 UNIT SUBCUT (15:00)
[2025-03-14] MEDS: BISACODYL 10 MG SUPP PR (15:03)
[2025-03-14 16:09] LABS: MRSA (Nasal) PCR NOT DETECTED (Not Detect)
[2025-03-15 06:03] LABS: Add Manual Diff / Slide Review NO; Hematocrit 37.5 % (41-53); Hemoglobin 13.2 g/dL (13.5-17.5); Lymphocytes Absolute Auto 700 /uL (1100-4500); Mean Corpuscular HGB Conc 35.1 % (30-36); Mean Corpuscular Hemoglobin 30.5 PG (26-34); Mean Corpuscular Volume 86.9 fL (80-100); Platelet Count 166 X10^3/uL (150-400)
--- NOTE | 2025-03-15 06:14 | PC.NURSE ---
night warehouse selector RN note pt A&O to self only, impulsive, frequently attempting to get out of bed, bed alarm on, x2 max assist to bedside commode for frequent loose stools, frequent cueing needed to direct pt in care activities, baseline foot drop bilat, gait belt and walker used, hammond draining mod amt davon/blood tinged urine for retention, periph IV site patent with IV fluids infusing, pt denies pain, turned q2h, pt declined heparin SQ at HS, educated on risks/benefits, labs as ordered, care ongoing
[2025-03-15 06:17] LABS: Blood Urea Nitrogen 22 mg/dL (9-20); Calcium 10.6 mg/dL (8.4-10.2); Carbon Dioxide 29 mmol/L (22-32); Chloride 108 mmol/L (98-107); Estimated Glomerular Filt Rate > 60 mL/min (>60); Glucose 88 mg/dL (70-99); HEMOLYSIS < 15 (0-50); Potassium 4.3 mmol/L (3.4-5.1); Sodium 140 mmol/L (137-145)
[2025-03-15 07:00] VITALS: BP 129/97; PULSE 88; RESP 16; TEMP 36.6; O2SAT 97
--- NOTE | 2025-03-15 07:43 | PM.PN.1 ---
Subjective Subjective Interval history: Summary: The patient was a an 89-year-old male who was brought in for weakness. He was status post bilateral ureter stent placement at [facility] 4 weeks ago. The patient was followed by Dr. Sanders of Urology. In the emergency department, he was found to have evidence of urine retention. A Luna can not be placed and Urology performed cystoscopy and placed a catheter over a wire with 1 L of urine out. Imaging revealed hydroureter nephrosis as well as evidence of constipation and large rectal fecal burden. He was takes care of him, notes he has been weak for the last several days and had anorexia. The patient does have severe dementia and really can not communicate. He does appear comfortable. S: He was comfortable, no overnight events. O: VSS. NAD, alert and oriented. Fluent speech. Lungs are clear, normal rate and effort. Heart is regular, no murmur gallop or rub. Abdomen is soft, non distended. Extremities are free of edema. IMAGING: Chest x-ray: No acute cardiopulmonary abnormality is seen. Abdomen pelvis CT: 1. A Luna catheter decompresses the bladder completely. There are bilateral ureteral stents terminating in the bladder. 2. Status post bilateral double-J ureteral stent placement with resolution of hydronephrosis. A large right sided stone was previously in the proximal ureter, but is now in a lower pole calyx. There are left ureteral stones along the course of the ureteral stent. There is inflammatory change in the surrounding fat subjacent to the ureters, right greater than left, likely related to treatment. 3. Moderately large rectal fecal impaction with associated stercoral colitis. 4. Prostatomegaly. 5. 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 A/P: 1. UTI, active. Cr Cx no growth today. Will monitor Cx for another 24 hours. 2. Urine retention necessitating placement of Luna catheter with 1 L output, active. 3. Constipation with large rectal fecal burden, active. 4. Nephrolithiasis with recent bilateral stent placement at [facility]. 5. Severe dementia, active. 6. 226- Severe chronic protein calorie malnutrition r/t decreased appetite/ability to consume adequate intake as evidenced by severe dementia, 14% weight loss in 1 month (severe) and <50% of estimated energy intake for 1 month (severe) PLAN: -DC IV fluids. -Luna catheter for retention (continue Flomax and finasteride). -ceftriaxone for urinary tract infection and monitor cultures. -old records from [facility] -Dulcolax suppository -notify Dr. Maldonado ([facility]) of Urology of the patient was admission. -evaluating for residential facility discharge. Full code, discussed at admission. is proxy decision maker. Exam Vital Signs (past 8 hours): Oxygen Delivery Method Room Air Oxygen Flow Rate 0 Objective Labs 03/15/25 05:50 03/15/25 05:50 Labs: Laboratory Results - last 24 hr 03/14/25 03/15/25 14:40 05:50 WBC 7.0 RBC 4.32 L Hgb 13.2 L Hct 37.5 L MCV 86.9 MCH 30.5 MCHC 35.1 RDW 13.6 Plt Count 166 Neut % (Auto) 72.9 Lymph % (Auto) 10.1 L [place] % (Auto) 7.8 Eos % (Auto) 8.8 H Baso % (Auto) 0.4 Neut # (Auto) 5100 Lymph # (Auto) 700 L [place] # (Auto) 500 Eos # (Auto) 600 H Baso # (Auto) 0 Sodium 140 Potassium 4.3 Chloride 108 H Carbon Dioxide 29 BUN 22 H Creatinine 0.85 Estimated GFR > 60 BUN/Creatinine Ratio 25.9 H Glucose 88 Calcium 10.6 H Nasal Screen MRSA (PCR) Not detected [facility] Social History household members: spouse Smoking Status: Never smoker alcohol intake: former Assessment & Plan Time-Based Coding :: [TOTAL MINUTES] spent with patient and on the chart (including review of chart, obtaining history, exam, reviewing outside data, placing orders, documenting exam and treatment plan, and counseling patient) on [DATE]. Quality VTE Deep Vein Thrombosis/Pulmonary Embolism Present on Admission: No
[2025-03-15] MEDS: HEPARIN 5,000 UNIT/ML VIAL 5000 UNIT SUBCUT ×2 (08:28→21:33)
[2025-03-15] MEDS: SERTRALINE 50 MG TABLET 25 MG PO (08:29)
[2025-03-15] MEDS: FINASTERIDE 5 MG TABLET PO (08:29)
[2025-03-15] MEDS: TAMSULOSIN 0.4 MG CAPSULE 0.8 MG PO (08:29)
[2025-03-15] MEDS: SODIUM CHLORIDE 0.9% 1,000 ML 100 ML IV (08:29)
--- NOTE | 2025-03-15 10:55 | DIET.CONS ---
Dietary Consultation Note Admission Date: 03/14/2025 12:33 Assessment: 89 y M admitted for UTI. Dietitian consulted for dementia, poor appetite, weight loss. Met with pt and at bedside. Reports within last month, significant decrease in PO intakes - not eating usual foods, <50% of usual intakes and about a 20# weight loss. notes significant muscle mass loss in legs and around hands. Not able to participate in NFPE but noted depressions around interosseous muscle and moderate to severe muscle wasting in temples visually. Foods pt tolerates well: strawberry/vanilla Ensure milkshakes or smoothies blueberry pancakes in bite sized pieces oranges cooked carrots ham and cheese grilled cheese in bite sized pieces any ice cream side salads with ranch Chicken in bite sized pieces with BBQ sauce Finger foods Ht: 185.42 cm Wt: 77.111 kg BMI: 22.4 UBW: 198# 1 month ago (-14% weight loss in 1 month, severe) Last BM: 03/15/25 (03/15/25 03:44) MNA: 3 Dar Score: 16 Diet: 03/14/25 Dinner General (Regular) Diet Diet Modifications: Labs: RBC 4.32 X10^6/uL (4.5-5.9) L 03/15/25 05:50 Hgb 13.2 g/dL (13.5-17.5) L 03/15/25 05:50 Hct 37.5 % (41-53) L 03/15/25 05:50 Creatinine 0.85 mg/dL (0.66-1.25) 03/15/25 05:50 Lactate 1.0 mmol/L (0.7-2.1) 03/13/25 23:00 Nutrition Diagnosis: Severe chronic protein calorie malnutrition r/t decreased appetite/ability to consume adequate intake as evidenced by severe dementia, 14% weight loss in 1 month (severe) and <50% of estimated energy intake for 1 month (severe) Interventions: -Coordinated food preferences -Ensure+ milkshakes BID-TID depending on PO intakes% -Weighted utensils -Bite sized foods EER: [id number] kcals (25-26 kcals/kg per BMI) 80-90 g protein (1-1.2 g/kg per PCM) Monitoring/Evaluations: PO tolerance, ONS intake Electronically Signed by: Sana Hart 03/15/25 10:55 Clinical Dietitian [address] [address]
--- NOTE | 2025-03-15 13:59 | OT.IPNOTE ---
Nursing wanting to allow pt to sleep and therefore check on pt tomorrow for OT eval.
--- NOTE | 2025-03-15 14:00 | PT-IP ANOTE ---
Pt discussed in rounds and PT consult received. PT reviewed chart and checked on pt. Nsg stating that pt just getting to sleep and they would like pt to rest at this time d/t restless night. Will con't PT efforts next date.
--- NOTE | 2025-03-15 15:21 | CM.DPNOTE ---
DCP note IMPROVEMENT INTERN reviewed EMR PT/OT did not work with pt today due to resting. per RN, not at all combative. just confused and wanting to go home. confusion about hammond cath/bed allan. IMPROVEMENT INTERN emailed Carol at [facility] initial available information. Acceptance pending. PASRR started. P: per spouse preference dc to [facility] if able to accept. will continue to follow closely for DCP Coordination THEODORE Almonte
[2025-03-15] MEDS: FLEETS ENEMA 1 EACH PR (16:50)
[2025-03-15 20:00] VITALS: BP 126/64; PULSE 75; RESP 18; TEMP 36.4; O2SAT 99
[2025-03-16 06:00] LABS: Add Manual Diff / Slide Review NO; Hematocrit 40.4 % (41-53); Hemoglobin 14.0 g/dL (13.5-17.5); Lymphocytes Absolute Auto 800 /uL (1100-4500); Mean Corpuscular HGB Conc 34.6 % (30-36); Mean Corpuscular Hemoglobin 30.2 PG (26-34); Mean Corpuscular Volume 87.3 fL (80-100); Platelet Count 177 X10^3/uL (150-400)
[2025-03-16 06:16] LABS: Blood Urea Nitrogen 21 mg/dL (9-20); Calcium 11.0 mg/dL (8.4-10.2); Carbon Dioxide 29 mmol/L (22-32); Chloride 108 mmol/L (98-107); Estimated Glomerular Filt Rate > 60 mL/min (>60); Glucose 92 mg/dL (70-99); HEMOLYSIS 19 (0-50); Potassium 4.0 mmol/L (3.4-5.1); Sodium 143 mmol/L (137-145)
--- NOTE | 2025-03-16 07:32 | P.PN_ITS ---
Subjective Subjective Interval history: S: NAD. No pain. Still constipated. O: VSS. NAD, alert and oriented to self. Fluent speech. Lungs are clear, normal rate and effort. Heart is regular, no murmur gallop or rub. Abdomen is soft, non distended. Extremities are free of edema. IMAGING: Chest x-ray: No acute cardiopulmonary abnormality is seen. Abdomen pelvis CT: 1. A Luna catheter decompresses the bladder completely. There are bilateral ureteral stents terminating in the bladder. 2. Status post bilateral double-J ureteral stent placement with resolution of hydronephrosis. A large right sided stone was previously in the proximal ureter, but is now in a lower pole calyx. There are left ureteral stones along the course of the ureteral stent. There is inflammatory change in the surrounding fat subjacent to the ureters, right greater than left, likely related to treatment. 3. Moderately large rectal fecal impaction with associated stercoral colitis. 4. Prostatomegaly. 5. 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 A/P: 1. UTI, active. Cr Cx no growth today. Will monitor Cx for another 24 hours. 2. Urine retention necessitating placement of Luna catheter with 1 L output, active. 3. Constipation with large rectal fecal burden, active. 4. Nephrolithiasis with recent bilateral stent placement at [facility]. 5. Severe dementia, active. 6. 226- Severe chronic protein calorie malnutrition r/t decreased appetite/ability to consume adequate intake as evidenced by severe dementia, 14% weight loss in 1 month (severe) and <50% of estimated energy intake for 1 month (severe) PLAN: -DC IV fluids 03/15. 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 Urology recommended leaving this and until his follow up at [facility]. -ceftriaxone for urinary tract infection and monitor cultures. Cultures have remained negative, we will stop at this point. -old records from [facility] were obtained and reviewed. -Dulcolax suppository given on 03 15, and enema also given. -notify Dr. Maldonado ([facility]) of Urology of the patient was admission. -evaluating for longterm facility discharge. -Monitor Ca (check PSA and PTH) -anticipate SNF discharge. -Mineral oil enema. Full code, discussed at admission. is proxy decision maker. Exam Vital Signs (past 8 hours): Oxygen Delivery Method Room Air Oxygen Flow Rate 0 Objective Labs 03/16/25 05:50 03/16/25 05:50 Labs: Laboratory Results - last 24 hr 03/16/25 05:50 WBC 5.5 RBC 4.63 Hgb 14.0 Hct 40.4 L MCV 87.3 MCH 30.2 MCHC 34.6 RDW 13.9 Plt Count 177 Neut % (Auto) 68.4 Lymph % (Auto) 14.9 L Stephens % (Auto) 7.3 Eos % (Auto) 8.6 H Baso % (Auto) 0.8 Neut # (Auto) 3800 Lymph # (Auto) 800 L Stephens # (Auto) 400 Eos # (Auto) 500 H Baso # (Auto) 0 Sodium 143 Potassium 4.0 Chloride 108 H Carbon Dioxide 29 BUN 21 H Creatinine 0.72 Estimated GFR > 60 BUN/Creatinine Ratio 29.2 H Glucose 92 Calcium 11.0 H PFSH Social History household members: spouse Smoking Status: Never smoker alcohol intake: former Assessment & Plan Time-Based Coding :: [TOTAL MINUTES] spent with patient and on the chart (including review of chart, obtaining history, exam, reviewing outside data, placing orders, documenting exam and treatment plan, and counseling patient) on [DATE]. Quality VTE Deep Vein Thrombosis/Pulmonary Embolism Present on Admission: No
[2025-03-16 08:00] VITALS: BP 118/57; PULSE 64; RESP 14; TEMP 36.1; O2SAT 96
[2025-03-16] MEDS: TAMSULOSIN 0.4 MG CAPSULE 0.8 MG PO (08:40)
[2025-03-16] MEDS: SERTRALINE 50 MG TABLET 25 MG PO (08:41)
[2025-03-16] MEDS: FINASTERIDE 5 MG TABLET PO (08:41)
[2025-03-16] MEDS: SODIUM CHLORIDE 0.9% FLUSH 10 ML IV ×2 (08:41→21:04)
[2025-03-16] MEDS: HEPARIN 5,000 UNIT/ML VIAL 5000 UNIT SUBCUT ×2 (08:42→21:04)
--- NOTE | 2025-03-16 09:45 | OT.IP.EVAL ---
Current Diagnoses Retention of urine, unspecified (03/14/25) Occupational Therapy Inpatient Evaluation/Re-Eval M1 OT IP Prior Functional Status Start: 03/16/25 10:13 Freq: Status: Active Protocol: Document 03/16/25 10:26 [facility] (Rec: 03/16/25 10:48 [facility] Desktop) Medical Review Prior Functional Status Mobility and Gait Per pt's prior to to having diarrhea 1-1/2 weeks ago, pt was able to walk without a device and use of foot braces. Pt used the fww upstairs and 4ww outside. Activities of Daily Per pt's prior to his diarrhea, able to do basic Living and IADL's ADL's, and she was there for showering needs for safety . Prior Functional Prior to getting weak and confused, per pt's that Level (Other details she was able to leave him for 2 hours at at time and he ) was able to manage getting sandwiches from the frig. Social History Household Members spouse Living Arrangements House Number of Floors ( Two Floors Floors) Number of Stairs To 2 steps with bilateral rails to enter. One flight of Enter/Railing? steps 1/2 way up left rail and other 1/2 right rail up. Home Environment High Toilet,Walk in Shower,Tub/Shower Home Equipment Front Wheel Walker,Four Wheel Walker,Hand Held Shower, Grab Bars Near Toilet Additional Social Pt's states they are in the process on going to [facility] Comment see a Neurologist from his hands that are atrophied. M2 OT-IP Current Condition Start: 03/16/25 10:13 Freq: Status: Active Protocol: Document 03/16/25 10:26 [facility] (Rec: 03/16/25 10:48 [facility] Desktop) Occupational Therapy Current Condition Current Condition Evaluation Date 03/16/25 Treatment Diagnosis UTI weakness, confusion Diagnosis Onset Date 03/14/25 M3 OT- IP Subjective and Pain Start: 03/16/25 10:13 Freq: Status: Active Protocol: Document 03/16/25 10:26 [facility] (Rec: 03/16/25 10:48 [facility] Desktop) OT- Subjective Occupational Therapy Visit Type Type Initial Evaluation Visit Start Time 09:15 Visit Stop Time 09:45 Occupational Therapy Visit Comments Patient Comments Pt agreed to get up. OT Pain Assessment Pain When Pain Assessed At Rest Pain Present Pain Present Denied Pain M4 OT- IP ADL's Start: 03/16/25 10:13 Freq: Status: Active Protocol: Document 03/16/25 10:26 [facility] (Rec: 03/16/25 10:48 [facility] Desktop) OT [id number] Comments OT Self-Feeding Not at meal time. Comments OT ADL-Grooming General Evaluation Areas Needing Retrieving/Set-up of Grooming Items Assistance Comments OT Grooming Comments Supervision for set-up and to help sequence through tasks. OT ADL-Oral Care General Eval Oral Care Ability Standby Assistance Comments Oral Care Comments VC for completeness. OT ADL-Dressing General Eval Lower Body Dressing Maximum Assistance Ability Areas Needing Socks Assistance OT ADL-Toileting General Evaluation Toileting Ability Total Assistance Comments OT Toileting Luna in place. Comments OT ADL-Bathing Comments OT Bathing Comments Pt will need assist and benefit from shower chair at home. Pt's fearful on having a shower chair due to stone alexsander the shower. M5 OT- IP IADL's Start: 03/16/25 10:13 Freq: Status: Active Protocol: Document 03/16/25 10:26 [facility] (Rec: 03/16/25 10:48 [facility] Desktop) OT-Instrumental Activities of Daily Living Home Safety Awareness Awareness of Need Decreased Awareness for Assistance at Home Ability to Problem Unable to Problem Solve Solve Emergency Situations Home Safety Comments Pt is quite confused at this time just able to state his first name. Medication Management Medication Caregiver Administers Management Money Management Money Management Caregiver Provides Assistance Meal Preparation Meal Preparation Caregiver Provides Assist Lard Bleacher Lard Bleacher Caregiver Provides Assist M6 OT- IP Functional Cognition Start: 03/16/25 10:13 Freq: Status: Active Protocol: Document 03/16/25 10:26 [facility] (Rec: 03/16/25 10:48 [facility] Desktop) Cognitive Factors Limiting Selfcare Function Cognitive Ability Level of Alertness Confusional State Patient Orientation Name Attention Span Capable of Focused Attention,Unable to Sustain Ability Attention Ability to Follow Able to Follow One Step Commands with Increased Time, Commands Able to Follow One Step Commands with Repetition Memory Description Short Term Impaired,Fdc Impaired Cognitive Comments Cognitive Assessment Pt mainly just orientated to his first name. Pt needing Comments simple concrete cues to follow. OT- Vision and Hearing OT- Hearing Assessment OT- Hearing Hearing Impaired,Use of Hearing Aids Assessment OT- Vision Assessment Visual Acuity Glasses For Reading Vision Assessment Per pt's uses glasses to watch TV. Pt not able to Comments accurately read the clock at this time. M7 OT- IP Mobility and Balance Start: 03/16/25 10:13 Freq: Status: Active Protocol: Document 03/16/25 10:26 [facility] (Rec: 03/16/25 10:48 [facility] Desktop) OT- Bed Mobility Assessment Supine to Sit Supine to Sit Assist Standby Assistance OT-Transfer Assessment Sit to and From Stand Sit to and from Minimal Assistance Stand Transfers Transfer Ability Minimal Assistance Technique Transfer Destination Bed,Chair Transfer Technique Stand Step Pivot Devices Transfer Assistive Gait Belt,Front Wheeled Walker Devices Comments Mobility Comments KARMEN to stand and will need assist from lower surfaces. KARMEN with transfer at this time. Per pt's , pt has foot braces that he uses at all times. OT- Balance Assessment Sitting Balance and Reactions Static Sitting Good Balance Ability Dynamic Sitting Fair Balance Ability Standing Balance and Reactions Static Standing Poor Balance Ability Dynamic Standing Poor Balance Ability M8 OT- IP Objective Assessments Start: 03/16/25 10:13 Freq: Status: Active Protocol: Document 03/16/25 10:26 [facility] (Rec: 03/16/25 10:48 [facility] Desktop) OT Gross Range of Motion Upper Extremity Range of Motion Assessment Within Functional Limits OT Strength Upper Extremity Strength Assessment Bilaterally Impaired Comments Strength Comments Grossly WFL from shoulder to elbows. Much atrophy in his hands and decreased FMS. OT- Coordination Assessment Comments Coordination Pt tends to hold objects with gross grasp and also use Comments of thumb to help hold paper cup while doing oral care. Noted difficulty with secretions after brushing his teeth. Notified nursing and pt would benefit from GOLD STAMPER mikayla. M9 OT- IP Assessment and Plan Start: 03/16/25 10:13 Freq: Status: Active Protocol: Document 03/16/25 10:26 [facility] (Rec: 03/16/25 10:48 [facility] Desktop) OT Summary Assessment and Plan Potential Rehabilitation Good Potential Analytic Complexity Moderate at Evaluation Summary OT Impairments Strength,Balance,Coordination,Functional Cognition, Functional Mobility,Self-Feeding,Grooming,Dressing, Toileting,Bathing,Toilet Transfers,Shower Transfers, Activity Tolerance Progress Towards Slow Progress due to Medical Issues,Slow Progress due Goals to Activity Tolerance,Slow Progress due to Cognition Assessment Summary Pt MOD complexity and main barriers are steps, decreased balance, coordination, strength, and now needing one person assist for all ADL and mobility needs. Pt will benefit from skilled rehab prior to going home. Goals Self-Feeding Goal Independent Grooming Goal Independent Dressing Goal Standby Assistance Toileting Goal Standby Assistance Bathing Goal Minimal Assistance Toilet Transfer Goal Standby Assistance Shower Transfer Goal Standby Assistance Days to Meet Goals 15 Frequency of Treatment Other frequency 5x/week Treatment Plan OT Treatment Plan ADL Training,Functional Cognition Training,Functional Mobility,Patient/Family Education,Discharge Planning Other Treatment Pt to be able to don his foot braces with KARMEN. Recommendations and Next Treatment Focus Discharge Recommendations OT Discharge SNF Rehab Recommendations Transportation Needs Private Vehicle,Wheelchair/Cabulance at Discharge
--- NOTE | 2025-03-16 09:45 | PT.IIE ---
Current Diagnoses Retention of urine, unspecified (03/14/25) Physical Therapy Inpatient Evaluation/Re-Eval M1 PT IP Prior Functional Status Start: 03/16/25 10:21 Freq: NEEDED Status: Active Protocol: Document 03/16/25 09:45 [facility] (Rec: 03/16/25 11:06 [facility] Desktop) Medical Review Prior Functional Status Medical History Yes Reviewed Diet/Fluid Regular Consistency Communication hard of hearing, can verbalize needs, reading glasses, has hearing aides Mobility and Gait Per pt's prior to to having diarrhea 1-1/2 weeks ago, pt was able to walk without a device and use of foot braces. Pt used the fww upstairs and 4ww outside. Activities of Daily Per pt's prior to his diarrhea, able to do basic Living and IADL's ADL's, and she was there for showering needs for safety . Prior Functional Prior to getting weak and confused, per pt's that Level (Other details she was able to leave him for 2 hours at at time and he ) was able to manage getting sandwiches from the frig. Social History Household Members spouse Living Arrangements House Number of Floors ( Two Floors Floors) Number of Stairs To 2 steps with bilateral rails to enter. One flight of Enter/Railing? steps 1/2 way up left rail and other 1/2 right rail up. Home Environment High Toilet,Walk in Shower,Tub/Shower Home Equipment Front Wheel Walker,Four Wheel Walker,Hand Held Shower, Grab Bars Near Toilet Employment Status Retired Additional Social Pt's states they are in the process on going to [facility] Comment see a Neurologist from his hands that are atrophied. Bilateral foot drop with LE braces Retired from [employer]. Patient is very limited in what baseline information he can provide M2 PT-IP Current Condition Start: 03/16/25 10:21 Freq: NEEDED Status: Active Protocol: Document 03/16/25 09:45 [facility] (Rec: 03/16/25 10:46 [facility] Desktop) Physical Therapy Current Condition Current Condition Evaluation Date 03/16/25 Treatment Diagnosis Weakness, UTI Onset Date 03/14/25 M3 PT-IP Subjective Start: 03/16/25 10:21 Freq: NEEDED Status: Active Protocol: Document 03/16/25 09:45 [facility] (Rec: 03/16/25 10:46 [facility] Desktop) Subjective Physical Therapy Visit Type Type Initial Evaluation Visit Start Time 09:15 Visit Stop Time 09:45 Notes 30 min Number of LINE LEAD Visits 0 Physical Therapy Visit Comments Patient Comments He reports no pain today Patient Goals he is unable to state Therapy Pain Assessment Pain When Pain Assessed At Rest Pain Present Pain Present Denied Pain M4 PT-IP Mobility and Gait Start: 03/16/25 10:21 Freq: NEEDED Status: Active Protocol: Document 03/16/25 09:45 [facility] (Rec: 03/16/25 10:46 [facility] Desktop) PT-Bed Mobility Assessment Supine to Sit Supine to Sit Standby Assistance Sit to Supine Sit to Supine Minimal Assistance Scooting Scooting to Edge of Independent Bed PT-Transfer Assessment Sit to and From Stand Sit to and from Contact Guard Assistance,Minimal Assistance,Use of Stand Upper Extremities Equipment Transfer Assistive Gait Belt,Front Wheeled Walker Device Transfers Transfer Destination Chair Transfer Technique Stand Step Pivot Transfer Ability Level of Assist Contact Guard Assistance,Minimal Assistance,Use of Upper Extremities Comments Mobility Comments Pt reports not using FWW at home. He attempted to stand without FWW but tremulous and decreased balance made this very unsafe so further mobility performed with FWW . He has more difficulty standing from recliner than from the bed since the chair is lower and can need min/ mod assist from the chair. Gait Assessment Gait Gait Assistance Contact Guard Assist,Minimum Assistance Required: Distance (Feet) 20 Assistive Devices Assistive Device Gait Belt,Front Wheeled Walker Factors Limiting Gait Function Factors Limiting Decreased Activity Tolerance,Decreased Strength,Poor Gait Function Balance Comments Gait Comments Pt has bilateral foot drop with steppage gait pattern. Gait with FWW due to unsafe without device. He forgets he has a hammond catheter in place. Mild to moderate tremors. Noted knees gradually become more flexed in static standing as he fatigues and pt needs cuing and assist to become more erect to prevent a fall. Pt left up in recliner after activity. PT-Balance Assessment Sitting Balance and Reactions Static Sitting Good Balance Ability Dynamic Sitting Good Balance Ability Standing Balance and Reactions Static Standing Poor Balance Ability Dynamic Standing Poor Balance Ability M5 PT-IP Objective Assessments Start: 03/16/25 10:21 Freq: NEEDED Status: Active Protocol: Document 03/16/25 09:45 [facility] (Rec: 03/16/25 10:46 [facility] Desktop) Orientation Orientation/Cognition Level of Alertness Alert Orientation Name Safety Awareness Decreased Safety Awareness Memory Description Short Term Impaired Comments pt unable to give baseline information, he is pleasant and cooperative, he can not recall he has hammond catheter and frequently asks to go to the toilet to urinate, he is mild to moderately hard of hearing, his response to questions is slow, he was only able to give his first name when asked (wrist band used to verify pt identity), Gross Range of Motion Upper Extremity ROM Assessment Within Functional Limits Lower Extremity ROM Assessment Within Functional Limits Strength Upper Extremity Strength Assessment Bilaterally Impaired Hand atrophy and weakness, see OT, pt uses compensations to hold objects Lower Extremity Strength Assessment Bilaterally Impaired Hip hip flexion right 5/5, left 4+/5 Knee knee ext right 5/5, left 4+/5 Ankle DF right 0/5 and left 1/5 Coordination Assessment Gross Coordination Gross Coordination Impaired Assessment Finger to Nose Test Minimal Impairment Heel on Mcdaniels Test Moderate Impairment Coordination drop feet prevent toe tapping test Comments Sensation Assessment Sensation Gross Sensation WNL Comments Sensation Comments he reports no numbness/tingling Muscle Tone Muscle Tone WNL Yes M6 PT-IP Treatment Start: 03/16/25 10:21 Freq: NEEDED Status: Active Protocol: Document 03/16/25 09:45 [facility] (Rec: 03/16/25 10:46 [facility] Desktop) Physical Therapy Treatment Education Education Provided Safety Other Treatments Other Treatment pt up to recliner with chair alarm in use, call light Performed close and pt instructed to call nursing for assist M7 PT-IP Assessment and Plan Start: 03/16/25 10:21 Freq: NEEDED Status: Active Protocol: Document 03/16/25 09:45 [facility] (Rec: 03/16/25 10:46 [facility] Desktop) PT Summary Assessment and Plan Potential Rehabilitation Good Potential Status of Condition Evolving at Evaluation Summary Impairments Strength,Balance,Coordination,Cognition,Bed Mobility, Transfers,Gait,Activity Tolerance Assessment Summary Tripp is alert and resting in bed today. He was admitted for weakness in the setting of UTI, urine retention and constipation/diarrhea. He was at [facility] about a month ago for ureteral stents. His reports increased weakness at home. At this clinical exam he has generalized functional weakness complicated by chronic hand and ankle weakness. He has bilateral foot drop that limits his gait. Pt is unable to report he uses ankle braces but his provided this information by phone after this visit. Pt was able to ambulate short distances in the room with one person assist and FWW. In static standing he fatigues and his knees slowly become more flexed making at high risk for falls. He is confused to day and only able to give his first name. He is not aware of where he is nor why. He is asking for his . He is pleasant and cooperative with therapy. He can follow simple instructions. Recommend SNF rehab at discharge to assist with his functional recovery. He lives in a two story house and needs to be able to do stairs before going home. Goals Bed Mobility Goal Independent Transfer Goal Standby Assistance,Front Wheeled Walker Gait Goal Standby Assistance,Front Wheel Walker Gait Distance 150 Other Goals up/down stairs with rail and CG assist x 10 stairs Days to Meet Goals 10 Frequency of Treatment Frequency Of Once a Day Treatment Treatment Plan Physical Therapy Bed Mobility Training,Transfer Training,Gait Training, Treatment Plan Therapeutic Exercise,Balance Retraining,Post Op Education,Discharge Planning,Neuromuscular Re-ed, Coordination Retraining Precautions Other Precautions use leg braces for gait hard of hearing cognitive impairment Recommendations To Nursing Amount of Assist 1 Person Assist Needed Discharge Recommendations PT Discharge SNF Rehab Recommendations Transportation Needs Private Vehicle,Wheelchair/Cabulance at Discharge - PT assist one
[2025-03-16] MEDS: MINERAL OIL 1 EACH ENEMA PR (10:30)
--- NOTE | 2025-03-16 15:35 | CM.DPNOTE ---
DCP note EXTRUDER OPERATOR HORIZONTAL reviewed EMR per team in morning rounds, improvements with therapies. could still benefit from SNF. still has some urinary retention/constipation. still remains confused. pleasant. per provider, concerns about the spouse also having cognitive impairments. EXTRUDER OPERATOR HORIZONTAL met with pt and spouse in room. pt quiet during interaction. per spouse, remain hopeful for SNF at [facility]. report limited financial resources for either memory care/CGs with spouse. report neuro f/u on 03/25. spouse working with [facility] to [facility] and get increased assistance at home. EXTRUDER OPERATOR HORIZONTAL had to explain things multiple times to spouse. unclear how much she understood. EXTRUDER OPERATOR HORIZONTAL lvm x2 with Carol from [facility], no response as of 1529 PASRR done- need to add new med if added due to overnight confusion. P: ideally dc to SNF pending accepting facility/medical stability. LTC plan with [facility]? CM team will continue to follow closely for DCP Coordination THEODORE Almonte
--- NOTE | 2025-03-16 18:36 | PC.NURSE ---
Rn administered fleet enema on 03/15 late in afternoon without results during the evening or night. On 03/16 RN administered mineral oil enema which patient stated he felt and urge to have a BM mulitple times after with only oil expectorated. He is passing gas, BS hyperactive x , and abdomen is soft and nontender, however after enemas he has not had a significant BM.
[2025-03-16 19:53] VITALS: BP 144/60; PULSE 66; RESP 18; TEMP 36.3; O2SAT 98
[2025-03-17 06:06] LABS: Add Manual Diff / Slide Review NO; Hematocrit 37.0 % (41-53); Hemoglobin 13.1 g/dL (13.5-17.5); Lymphocytes Absolute Auto 1100 /uL (1100-4500); Mean Corpuscular HGB Conc 35.3 % (30-36); Mean Corpuscular Hemoglobin 30.4 PG (26-34); Mean Corpuscular Volume 86.2 fL (80-100); Platelet Count 166 X10^3/uL (150-400)
[2025-03-17 06:20] LABS: Blood Urea Nitrogen 19 mg/dL (9-20); Calcium 10.9 mg/dL (8.4-10.2); Carbon Dioxide 27 mmol/L (22-32); Chloride 111 mmol/L (98-107); Estimated Glomerular Filt Rate > 60 mL/min (>60); Glucose 91 mg/dL (70-99); HEMOLYSIS 16 (0-50); Potassium 3.9 mmol/L (3.4-5.1); Sodium 141 mmol/L (137-145)
[2025-03-17 08:00] VITALS: BP 143/66; PULSE 61; RESP 13; TEMP 35.8; O2SAT 100
[2025-03-17] MEDS: SERTRALINE 50 MG TABLET 25 MG PO (08:24)
[2025-03-17] MEDS: FINASTERIDE 5 MG TABLET PO (08:24)
[2025-03-17] MEDS: HEPARIN 5,000 UNIT/ML VIAL 5000 UNIT SUBCUT ×2 (08:24→21:00)
[2025-03-17] MEDS: TAMSULOSIN 0.4 MG CAPSULE 0.8 MG PO (08:25)
[2025-03-17] MEDS: SODIUM CHLORIDE 0.9% FLUSH 10 ML IV ×2 (08:25→21:00)
--- NOTE | 2025-03-17 08:39 | PT.IPTN ---
Current Diagnoses Retention of urine, unspecified (03/14/25) Physical Therapy Treatment Note M2 PT-IP Current Condition Start: 03/16/25 10:21 Freq: NEEDED Status: Active Protocol: Document 03/17/25 07:43 AB (Rec: 03/17/25 08:38 AB Laptop) Physical Therapy Current Condition Current Condition Evaluation Date 03/16/25 Treatment Diagnosis Weakness, UTI Onset Date 03/14/25 M3 PT-IP Subjective Start: 03/16/25 10:21 Freq: NEEDED Status: Active Protocol: Document 03/17/25 07:43 AB (Rec: 03/17/25 08:38 AB Laptop) Subjective Physical Therapy Visit Type Type Treatment Note Visit Start Time 07:50 Visit Stop Time 08:18 Notes 28 min Number of PHOTO EQUIPMENT TECHNICIAN Visits 1 Physical Therapy Visit Comments Patient Comments No complaints of pain, not aware place and delay when asked his name, and didn't complete ie, Arsenio. Therapy Pain Assessment Pain When Pain Assessed At Rest Pain Present Pain Present Allowed to Sleep M4 PT-IP Mobility and Gait Start: 03/16/25 10:21 Freq: NEEDED Status: Active Protocol: Document 03/17/25 07:43 AB (Rec: 03/17/25 08:38 AB Laptop) PT-Bed Mobility Assessment Supine to Sit Supine to Sit Standby Assistance Sit to Supine Sit to Supine Standby Assistance Scooting Scooting to Edge of Independent Bed PT-Transfer Assessment Sit to and From Stand Sit to and from Minimal Assistance,Moderate Assistance Stand Equipment Transfer Assistive Gait Belt,Front Wheeled Walker Device Transfers Transfer Destination Chair Transfer Technique Stand Step Pivot Transfer Ability Level of Assist Minimal Assistance,Moderate Assistance,Use of Upper Extremities Comments Mobility Comments Sit to stand from bed with Min assist and repeated verbal cues for UE position and able to complete with min A on 3rd attempt. Sit to stand increased VC for UE position, cues to back fully to chair. Sit to stand from chair Mod assist again with increased cues for UE position and trunk position. Gait Assessment Gait Gait Assistance Minimum Assistance Required: Distance (Feet) 8 Assistive Devices Assistive Device Gait Belt,Front Wheeled Walker Factors Limiting Gait Function Factors Limiting Decreased Activity Tolerance,Decreased Strength,Poor Gait Function Balance Comments Gait Comments Excessive steppage pattern, requires assist with catheter, but able to navigate through turn and back to chair, but did require VC to back fully to and align body with chair. Very unsteady, but only required Min assist. Patient left in recliner call light in place, chair alarm on, DISTRICT MEDICAL EXAMINER made aware. ( Patient required repeated VC to use correct button oncology account specialist light. DISTRICT MEDICAL EXAMINER made aware) PT-Balance Assessment Sitting Balance and Reactions Static Sitting Good Balance Ability Dynamic Sitting Good Balance Ability Standing Balance and Reactions Static Standing Poor Balance Ability Dynamic Standing Poor Balance Ability M5 PT-IP Objective Assessments Start: 03/16/25 10:21 Freq: NEEDED Status: Active Protocol: Document 03/16/25 09:45 DLM (Rec: 03/16/25 10:46 DLM Desktop) Orientation Orientation/Cognition Level of Alertness Alert Orientation Name Safety Awareness Decreased Safety Awareness Memory Description Short Term Impaired Comments pt unable to give baseline information, he is pleasant and cooperative, he can not recall he has hammond catheter and frequently asks to go to the toilet to urinate, he is mild to moderately hard of hearing, his response to questions is slow, he was only able to give his first name when asked (wrist band used to verify pt identity), Gross Range of Motion Upper Extremity ROM Assessment Within Functional Limits Lower Extremity ROM Assessment Within Functional Limits Strength Upper Extremity Strength Assessment Bilaterally Impaired Hand atrophy and weakness, see OT, pt uses compensations to hold objects Lower Extremity Strength Assessment Bilaterally Impaired Hip hip flexion right 5/5, left 4+/5 Knee knee ext right 5/5, left 4+/5 Ankle DF right 0/5 and left 1/5 Coordination Assessment Gross Coordination Gross Coordination Impaired Assessment Finger to Nose Test Minimal Impairment Heel on Mcdaniels Test Moderate Impairment Coordination drop feet prevent toe tapping test Comments Sensation Assessment Sensation Gross Sensation WNL Comments Sensation Comments he reports no numbness/tingling Muscle Tone Muscle Tone WNL Yes M6 PT-IP Treatment Start: 03/16/25 10:21 Freq: NEEDED Status: Active Protocol: Document 03/17/25 07:43 AB (Rec: 03/17/25 08:38 AB Laptop) Physical Therapy Treatment Exercises Knee ROM Measurement bridge, Heel slide, SLR, LAQ, hip add with pillow, X 12 Other Treatments Other Treatment Patient left in recliner call light in place, chair Performed alarm on, DISTRICT MEDICAL EXAMINER made aware. (Patient required repeated VC to use correct button oncology account specialist light, DISTRICT MEDICAL EXAMINER made aware) M7 PT-IP Assessment and Plan Start: 03/16/25 10:21 Freq: NEEDED Status: Active Protocol: Document 03/17/25 07:43 AB (Rec: 03/17/25 08:38 AB Laptop) PT Summary Assessment and Plan Potential Rehabilitation Good Potential Status of Condition Evolving at Evaluation Summary Impairments Strength,Balance,Coordination,Cognition,Bed Mobility, Transfers,Gait,Activity Tolerance Assessment Summary Tripp follows cues well overall, does require repeated VC for sit to stand and backing safely to chair, but is agreeable throughout. Patient reported feeling lightheaded post supine to sit BP 141/78 HR 69. Next session trial of braces which will likely be in closet. Goals Bed Mobility Goal Independent Transfer Goal Standby Assistance,Front Wheeled Walker Gait Goal Standby Assistance,Front Wheel Walker Gait Distance 150 Other Goals up/down stairs with rail and CG assist x 10 stairs Days to Meet Goals 10 Frequency of Treatment Frequency Of Once a Day Treatment Treatment Plan Physical Therapy Bed Mobility Training,Transfer Training,Gait Training, Treatment Plan Therapeutic Exercise,Balance Retraining,Post Op Education,Discharge Planning,Neuromuscular Re-ed, Coordination Retraining Precautions Other Precautions use leg braces for gait hard of hearing cognitive impairment Recommendations To Nursing Amount of Assist 2 Person Assist Needed Discharge Recommendations PT Discharge SNF Rehab Recommendations Transportation Needs Private Vehicle,Wheelchair/Cabulance at Discharge - PT assist one
--- NOTE | 2025-03-17 13:15 | OT.IP.TRT ---
Current Diagnoses Retention of urine, unspecified (03/14/25) Occupational Therapy Treatment Note M2 OT-IP Current Condition Start: 03/16/25 10:13 Freq: Status: Active Protocol: Document 03/16/25 10:26 [facility] (Rec: 03/16/25 10:48 [facility] Desktop) Occupational Therapy Current Condition Current Condition Evaluation Date 03/16/25 Treatment Diagnosis UTI weakness, confusion Diagnosis Onset Date 03/14/25 M3 OT- IP Subjective and Pain Start: 03/16/25 10:13 Freq: Status: Active Protocol: Document 03/17/25 13:34 [facility] (Rec: 03/17/25 13:46 [facility] Desktop) OT- Subjective Occupational Therapy Visit Type Type Treatment Note Visit Start Time 13:10 Visit Stop Time 13:34 Occupational Therapy Visit Comments Patient Comments Pt's in the room to help clarify pt's prior level of function. Patient/Caregiver Pt is agreeable to go to skilled rehab Goals OT Pain Assessment Pain When Pain Assessed At Rest Pain Present Pain Present Denied Pain M4 OT- IP ADL's Start: 03/16/25 10:13 Freq: Status: Active Protocol: Document 03/17/25 13:34 [facility] (Rec: 03/17/25 13:46 [facility] Desktop) OT [id number] Comments OT Self-Feeding Assist for set-up for items, per pt's was assist Comments him during his meal today. OT ADL-Dressing General Eval Upper Body Dressing Moderate Assistance Ability Lower Body Dressing Maximum Assistance Ability Areas Needing Socks,Orthosis/Prosthesis Assistance Comments OT Dressing Comments Pt able to jalil/doff left sock and needing for right sock and strapping for his foot braces and assist to tie his shoes. Pt's assisting to jalil jacket over his arms. OT ADL-Toileting General Evaluation Toileting Ability Total Assistance Areas Needing Empty Catheter or Colostomy Assistance OT ADL-Bathing Comments OT Bathing Comments Pt will need assist. M5 OT- IP IADL's Start: 03/16/25 10:13 Freq: Status: Active Protocol: Document 03/16/25 10:26 [facility] (Rec: 03/16/25 10:48 [facility] Desktop) OT-Instrumental Activities of Daily Living Home Safety Awareness Awareness of Need Decreased Awareness for Assistance at Home Ability to Problem Unable to Problem Solve Solve Emergency Situations Home Safety Comments Pt is quite confused at this time just able to state his first name. Medication Management Medication Caregiver Administers Management Money Management Money Management Caregiver Provides Assistance Meal Preparation Meal Preparation Caregiver Provides Assist Lead Android Developer Lead Android Developer Caregiver Provides Assist M6 OT- IP Functional Cognition Start: 03/16/25 10:13 Freq: Status: Active Protocol: Document 03/17/25 13:34 [facility] (Rec: 03/17/25 13:46 [facility] Desktop) Cognitive Factors Limiting Selfcare Function Cognitive Ability Level of Alertness Alert Patient Orientation Name Attention Span Capable of Focused Attention,Capable of Sustained Ability Attention,Unable to Sustain Attention Ability to Follow Able to Follow One Step Commands with Increased Time, Commands Able to Follow One Step Commands with Repetition Memory Description Short Term Impaired Cognitive Comments Cognitive Assessment Pt more alert today however at time not able to stay on Comments topic and tends to tell stories about the past. Pt's states pt has progressively gotten worse in the past month and much worse in the past two weeks that she has had to physically assist pt for ADL and mobility needs. Pt is cooperative and pleasant. M7 OT- IP Mobility and Balance Start: 03/16/25 10:13 Freq: Status: Active Protocol: Document 03/17/25 13:34 [facility] (Rec: 03/17/25 13:46 [facility] Desktop) OT- Bed Mobility Assessment Supine to Sit Supine to Sit Assist Standby Assistance OT-Transfer Assessment Sit to and From Stand Sit to and from Minimal Assistance Stand Transfers Transfer Ability Minimal Assistance,Moderate Assistance Technique Transfer Destination Bed,Chair Transfer Technique Stand Step Pivot Devices Transfer Assistive Gait Belt,Front Wheeled Walker Devices Comments Mobility Comments KARMEN to stand and when tiring his legs tend to buckle and needing MODA with use of FWW. Pt tends to lean to the right when on his feet. Able to show pt's how to jalil/doff the gait belt and assist pt for transfers . OT- Balance Assessment Sitting Balance and Reactions Static Sitting Good Balance Ability Dynamic Sitting Fair Balance Ability Standing Balance and Reactions Static Standing Poor Balance Ability Dynamic Standing Poor Balance Ability M8 OT- IP Objective Assessments Start: 03/16/25 10:13 Freq: Status: Active Protocol: Document 03/16/25 10:26 [facility] (Rec: 03/16/25 10:48 [facility] Desktop) OT Gross Range of Motion Upper Extremity Range of Motion Assessment Within Functional Limits OT Strength Upper Extremity Strength Assessment Bilaterally Impaired Comments Strength Comments Grossly WFL from shoulder to elbows. Much atrophy in his hands and decreased FMS. OT- Coordination Assessment Comments Coordination Pt tends to hold objects with gross grasp and also use Comments of thumb to help hold paper cup while doing oral care. Noted difficulty with secretions after brushing his teeth. Notified nursing and pt would benefit from [employer] SILK GRADER M9 OT- IP Assessment and Plan Start: 03/16/25 10:13 Freq: Status: Active Protocol: Document 03/17/25 13:34 [facility] (Rec: 03/17/25 13:46 [facility] Desktop) OT Summary Assessment and Plan Potential Rehabilitation Good Potential Analytic Complexity Moderate at Evaluation Summary OT Impairments Strength,Balance,Coordination,Functional Cognition, Functional Mobility,Self-Feeding,Grooming,Dressing, Toileting,Bathing,Toilet Transfers,Shower Transfers, Activity Tolerance Progress Towards Progressing Toward Goals Goals Assessment Summary Pt actively assisting to jalil his AFO's and shoes today . Pt's there and able to go over training for transfer and gait belt. Pt is unsteady on his feet and legs tend to buckle as he tires. Pt will greatly benefit from skilled rehab prior to going home. Goals Self-Feeding Goal Standby Assistance Grooming Goal Standby Assistance Dressing Goal Minimal Assistance Toileting Goal Minimal Assistance Bathing Goal Minimal Assistance Toilet Transfer Goal Standby Assistance Shower Transfer Goal Standby Assistance Days to Meet Goals 15 Frequency of Treatment Other frequency 5x/week Treatment Plan OT Treatment Plan ADL Training,Functional Cognition Training,Functional Mobility,Patient/Family Education,Discharge Planning Other Treatment Pt to be able to stand at sink with FWW and do ADL Recommendations and needs with CGA. Next Treatment Focus Discharge Recommendations OT Discharge SNF Rehab Recommendations Transportation Needs Private Vehicle,Wheelchair/Cabulance at Discharge
[2025-03-17] MEDS: MAGNESIUM CITRATE 300 ML SOLUTION 150 ML PO (13:31)
--- NOTE | 2025-03-17 13:49 | CM.DPC ---
DCP SNF Planning: Per MD, pt making progress and plan is for hammond to remain for retention and kidney stones and d/c to SNF with hammond until his follow up appointment with [facility] Urologist in a week or two. Likely ready for d/c by tomorrow Friday. SW attempted to contact Carol at [facility] with the admissions cell phone and main number and left msgs and also emailed and no answer again from [facility] today. Met bedside with pt, spouse, and OT as they had just finished and pt made improvements today but still recommending SNF at d/c. SW updated them on difficulty getting confirmation from [facility] if they can accept for likely d/c tomorrow and so provided SNF Choice list for backup and preference is [facility] if [facility] cannot accept. Answered questions on Medicare coverage at SNF and transportation typically through facility van. Spouse willing to consider [facility] if other two cannot accept as pt will have his follow up appointment at [facility] for Urology in a week or two. Made [facility] referral as backup in anticipation of SNF tomorrow. [facility] previously done. Plan: SW to follow for [facility] and [facility] review towards determining which can accept for discharge likely tomorrow Friday. THEODORE Fitch
--- NOTE | 2025-03-17 14:09 | PM.PN.1 ---
Subjective Subjective Interval history: S: Doing well, no acute complaints. No problems overnight. O: VSS NAD, alert and oriented to self. Fluent speech. Lungs are clear, normal rate and effort. Heart is regular, no murmur gallop or rub. Abdomen is soft, non distended. Extremities are free of edema. 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 Urology recommended leaving this and until his follow up at [facility]. -Abx stopped. -Monitor Ca (check PSA and PTH)-pending. -anticipate SNF discharge. -No results with enema, will try Mg Citrate today. Full code, discussed at admission. is proxy decision maker. Exam Vital Signs (past 8 hours): - 03/17/25 08:00 Temperature 96.4 F L Pulse Rate 61 Respiratory Rate 13 Blood Pressure 143/66 H Pulse Oximetry 100 Oxygen Flow Rate 0 Oxygen Delivery Method Room Air Oxygen Flow Rate 0 Objective Labs 03/17/25 04:50 03/17/25 04:50 Labs: Laboratory Results - last 24 hr 03/17/25 04:50 WBC 4.6 RBC 4.29 L Hgb 13.1 L Hct 37.0 L MCV 86.2 MCH 30.4 MCHC 35.3 RDW 13.5 Plt Count 166 Neut % (Auto) 61.5 Lymph % (Auto) 24.0 L Churchill % (Auto) 7.3 Eos % (Auto) 6.7 H Baso % (Auto) 0.5 Neut # (Auto) 2800 Lymph # (Auto) 1100 Churchill # (Auto) 300 Eos # (Auto) 300 Baso # (Auto) 0 Sodium 141 Potassium 3.9 Chloride 111 H Carbon Dioxide 27 BUN 19 Creatinine 0.72 Estimated GFR > 60 BUN/Creatinine Ratio 26.4 H Glucose 91 Calcium 10.9 H PFSH Social History household members: spouse Smoking Status: Never smoker alcohol intake: former Assessment & Plan Time-Based Coding :: [TOTAL MINUTES] spent with patient and on the chart (including review of chart, obtaining history, exam, reviewing outside data, placing orders, documenting exam and treatment plan, and counseling patient) on [DATE]. Quality VTE Deep Vein Thrombosis/Pulmonary Embolism Present on Admission: No
--- NOTE | 2025-03-17 15:38 | DIET.PN1 ---
Dietary Progress Note Assessment: f/u Met with pt and . Reports pt has been eating well and tolerating the meals and drinking the Ensure+ ice cream protein shake provided BID-TID. No further adjustments needed. Continue intervention from consult. Recc Ensure+/Ensure BID-TID upon d/c. Ht: 185.42 cm Wt: 77.111 kg BMI: 22.4 UBW: Last BM: 03/15/25 (03/15/25 03:44) MNA: 3 Dar Score: 19 Diet: 03/14/25 Dinner General (Regular) Diet Diet Modifications: Labs: RBC 4.29 X10^6/uL (4.5-5.9) L 03/17/25 04:50 Hgb 13.1 g/dL (13.5-17.5) L 03/17/25 04:50 Hct 37.0 % (41-53) L 03/17/25 04:50 Creatinine 0.72 mg/dL (0.66-1.25) 03/17/25 04:50 Lactate 1.0 mmol/L (0.7-2.1) 03/13/25 23:00 Electronically Signed by: Sana Hart 03/17/25 15:38 Clinical Dietitian [address] [id number]
[2025-03-17 19:00] VITALS: BP 125/69; PULSE 76; RESP 20; TEMP 36.3; O2SAT 97
[2025-03-18 06:36] LABS: PSA, Total 3.8 ng/mL (0.0-4.0)
--- NOTE | 2025-03-18 07:44 | DI.RAD.S_ITS ---
PROCEDURE: XR KUB INDICATIONS: Abd distension TECHNIQUE: One view of the abdomen acquired. COMPARISON: Located Within [facility], CT, CT ABDOMEN PELVIS W CON, 03/14/2025, 8:52. FINDINGS: Double-J nephroureteral stent bilaterally. Proximal left stent is not coiled similar to prior CT. Renal pelvic calcifications bilaterally are not well demonstrated due to bowel gas. Calcifications are noted along the expected location of the right proximal ureter similar to prior CT examination. Partially imaged Luna catheter. Right hip hemiarthroplasty. Nonobstructed bowel gas pattern. IMPRESSION: As above. Dictated by: Yair Marquez M.D. on 03/18/2025 at 9:52 Approved by: Yair Marquez M.D. on 03/18/2025 at 9:54
[2025-03-18] MEDS: SERTRALINE 50 MG TABLET 25 MG PO (09:11)
[2025-03-18] MEDS: FINASTERIDE 5 MG TABLET PO (09:11)
[2025-03-18] MEDS: TAMSULOSIN 0.4 MG CAPSULE 0.8 MG PO (09:16)
[2025-03-18] MEDS: HEPARIN 5,000 UNIT/ML VIAL 5000 UNIT SUBCUT ×2 (09:16→20:29)
[2025-03-18 09:36] LABS: Calcium 10.3 mg/dL (8.6-10.2); Parathyroid Hormone, Intact 117 pg/mL (15-65)
[2025-03-18 09:45] VITALS: BP 120/60; PULSE 65; RESP 16; TEMP 36.2; O2SAT 100
--- NOTE | 2025-03-18 09:57 | P.PN_ITS ---
Subjective Subjective Interval history: Summary: Admitted with urine retention initially. Question of urine tract infection. Urine culture negative. He had been on oral antibiotics before. He would to have cystoscopy replace his catheter. He has a history of retention and nephrolithiasis in his solid by Dr. Maldonado at [facility]. He would false passages on cystoscopy in the urethra. I have discussed this with Dr. Maldonado, recommendations to discharge with leg bag and he has a follow up and possible procedure on March 25. Here the patient has been constipated as well, there was question whether or not constipation it was contributing to his retention. That being said, he was on high dose Flomax and finasteride chronically. He was had multiple enemas, suppository, and 2 doses of Mag citrate with some improvement of the situation. We are waiting for shelter facility authorization. Hospital course: Catheter placed for retention with over a L out. Imaging with hydronephrosis. He was nonobstructing nephrolithiasis. The patient has had bowel programs and otherwise is clinically stable. He was severe cognitive impairment. His is very supportive. O: NAD, alert and oriented to self. Fluent speech. Lungs are clear, normal rate and effort. Heart is regular, no murmur gallop or rub. Abdomen is soft, non distended. Extremities are free of edema. IMAGING: Chest x-ray: No acute cardiopulmonary abnormality is seen. Abdomen pelvis CT: 1. A Luna catheter decompresses the bladder completely. There are bilateral ureteral stents terminating in the bladder. 2. Status post bilateral double-J ureteral stent placement with resolution of hydronephrosis. A large right sided stone was previously in the proximal ureter, but is now in a lower pole calyx. There are left ureteral stones along the course of the ureteral stent. There is inflammatory change in the surrounding fat subjacent to the ureters, right greater than left, likely related to treatment. 3. Moderately large rectal fecal impaction with associated stercoral colitis. 4. Prostatomegaly. 5. 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 A/P: 1. UTI, active. Cr Cx no growth today. Stop Abx. 2. Urine retention necessitating placement of Luna catheter with 1 L output, active. 3. Constipation with large rectal fecal burden, improving. 4. Nephrolithiasis with recent bilateral stent placement at [facility]. 5. Severe dementia, active. 6. 226- Severe chronic protein calorie malnutrition r/t decreased appetite/ability to consume adequate intake as evidenced by severe dementia, 14% weight loss in 1 month (severe) and <50% of estimated energy intake for 1 month (severe) PLAN: -leave Luna in until Urology follow up. -continue bowel program. -awaiting authorization for shelter facility program. Exam Vital Signs (past 8 hours): - 03/18/25 09:45 Temperature 97.2 F L Pulse Rate 65 Respiratory Rate 16 Blood Pressure 120/60 Pulse Oximetry 100 Oxygen Flow Rate 0 Oxygen Delivery Method Room Air Oxygen Flow Rate 0 Objective Labs 03/17/25 04:50 03/17/25 04:50 Labs: Laboratory Results - last 24 hr 03/16/25 07:42 Prostate Specific Ag 3.8 Free PSA 0.59 % Free PSA Calc 15.5 PTH Intact 117 H Calcium (PTH Intact) 10.3 H PTH Intact Intraop Comment PFSH Social History household members: spouse Smoking Status: Never smoker alcohol intake: former Assessment & Plan Time-Based Coding :: [TOTAL MINUTES] spent with patient and on the chart (including review of chart, obtaining history, exam, reviewing outside data, placing orders, documenting exam and treatment plan, and counseling patient) on [DATE]. Quality VTE Deep Vein Thrombosis/Pulmonary Embolism Present on Admission: No
[2025-03-18] MEDS: SODIUM CHLORIDE 0.9% FLUSH 10 ML IV ×2 (10:08→20:29)
--- NOTE | 2025-03-18 10:57 | OT.IP.TRT ---
Current Diagnoses Retention of urine, unspecified (03/14/25) Occupational Therapy Treatment Note M2 OT-IP Current Condition Start: 03/16/25 10:13 Freq: Status: Active Protocol: Document 03/16/25 10:26 [facility] (Rec: 03/16/25 10:48 [facility] Desktop) Occupational Therapy Current Condition Current Condition Evaluation Date 03/16/25 Treatment Diagnosis UTI weakness, confusion Diagnosis Onset Date 03/14/25 M3 OT- IP Subjective and Pain Start: 03/16/25 10:13 Freq: Status: Active Protocol: Document 03/18/25 10:58 [facility] (Rec: 03/18/25 11:14 [facility] Desktop) OT- Subjective Occupational Therapy Visit Type Type Treatment Note Visit Start Time 10:20 Visit Stop Time 10:58 Occupational Therapy Visit Comments Patient Comments Pt having states needing to have a bowel movement. Patient/Caregiver Pt is agreeable to go to skilled rehab Goals OT Pain Assessment Pain When Pain Assessed At Rest Pain Present Pain Present Denied Pain M4 OT- IP ADL's Start: 03/16/25 10:13 Freq: Status: Active Protocol: Document 03/18/25 10:58 [facility] (Rec: 03/18/25 11:14 [facility] Desktop) OT ADL-Grooming General Evaluation Areas Needing Retrieving/Set-up of Grooming Items Assistance Comments OT Grooming Comments Assist to help put soap on his hands so he is able to wash them while standing at the sink with the FWW. OT ADL-Dressing General Eval Lower Body Dressing Maximum Assistance Ability Areas Needing Socks,Orthosis/Prosthesis Assistance Comments OT Dressing Comments Pt is a hurry to get to the bathroom, and therefore assisted pt with socks/foot braces and shoes after getting on the toilet. OT ADL-Toileting General Evaluation Toileting Ability Maximum Assistance,Total Assistance Areas Needing Empty Catheter or Colostomy Assistance Comments OT Toileting Luna in place. Pt attempt to wipe and having Comments difficulty and needing assist for completeness for hygiene. M5 OT- IP IADL's Start: 03/16/25 10:13 Freq: Status: Active Protocol: Document 03/16/25 10:26 [facility] (Rec: 03/16/25 10:48 [facility] Desktop) OT-Instrumental Activities of Daily Living Home Safety Awareness Awareness of Need Decreased Awareness for Assistance at Home Ability to Problem Unable to Problem Solve Solve Emergency Situations Home Safety Comments Pt is quite confused at this time just able to state his first name. Medication Management Medication Caregiver Administers Management Money Management Money Management Caregiver Provides Assistance Meal Preparation Meal Preparation Caregiver Provides Assist Reimbursement Representative Reimbursement Representative Caregiver Provides Assist M6 OT- IP Functional Cognition Start: 03/16/25 10:13 Freq: Status: Active Protocol: Document 03/18/25 10:58 [facility] (Rec: 03/18/25 11:14 [facility] Desktop) Cognitive Factors Limiting Selfcare Function Cognitive Ability Level of Alertness Alert Patient Orientation Name,Birthday Attention Span Capable of Focused Attention,Capable of Sustained Ability Attention,Unable to Sustain Attention Ability to Follow Able to Follow One Step Commands with Increased Time, Commands Able to Follow One Step Commands with Repetition Memory Description Short Term Impaired Cognitive Comments Cognitive Assessment Pt is just orientated to name and birthday. Pt able to Comments follow commands with simple concrete cues. Pt needing reminders to push up from surfaces when coming. Pt is pleasant and cooperative and needing cues to redirect as pt gets distracted. M7 OT- IP Mobility and Balance Start: 03/16/25 10:13 Freq: Status: Active Protocol: Document 03/18/25 10:58 [facility] (Rec: 03/18/25 11:14 [facility] Desktop) OT-Transfer Assessment Sit to and From Stand Sit to and from Contact Guard Assistance,Minimal Assistance,Moderate Stand Assistance Transfers Transfer Ability Contact Guard Assistance,Minimal Assistance Technique Transfer Destination Bed,Chair,Toilet Transfer Technique Stand Step Pivot Devices Transfer Assistive Gait Belt,Front Wheeled Walker Devices Comments Mobility Comments Pt needing MODA to stand from the toilet and CGA from the recliner. Pt CGA with FWW and as he tires needing KARMEN to help guide the FWW. OT- Balance Assessment Sitting Balance and Reactions Static Sitting Good Balance Ability Dynamic Sitting Fair Balance Ability Standing Balance and Reactions Static Standing Fair Balance Ability Dynamic Standing Fair Balance Ability M8 OT- IP Objective Assessments Start: 03/16/25 10:13 Freq: Status: Active Protocol: Document 03/16/25 10:26 [facility] (Rec: 03/16/25 10:48 [facility] Desktop) OT Gross Range of Motion Upper Extremity Range of Motion Assessment Within Functional Limits OT Strength Upper Extremity Strength Assessment Bilaterally Impaired Comments Strength Comments Grossly WFL from shoulder to elbows. Much atrophy in his hands and decreased FMS. OT- Coordination Assessment Comments Coordination Pt tends to hold objects with gross grasp and also use Comments of thumb to help hold paper cup while doing oral care. Noted difficulty with secretions after brushing his teeth. Notified nursing and pt would benefit from RESOURCE ANALYST eval. Main OT- IP Assessment and Plan Start: 03/16/25 10:13 Freq: Status: Active Protocol: Document 03/18/25 10:58 [facility] (Rec: 03/18/25 11:14 [facility] Desktop) OT Summary Assessment and Plan Potential Rehabilitation Good Potential Analytic Complexity Moderate at Evaluation Summary OT Impairments Strength,Balance,Coordination,Functional Cognition, Functional Mobility,Self-Feeding,Grooming,Dressing, Toileting,Bathing,Toilet Transfers,Shower Transfers, Activity Tolerance Progress Towards Progressing Toward Goals Goals Assessment Summary Pt doing better up on his feet and able to get to and from the toilet from recliner x2 with CGA to KARMEN with FWW. Pt today orientated to name and birthday and likes to talk about past life events. Pt needing reminders that he is in the hospital. Pt will benefit from skilled rehab versus 24/ assist with home health at this time. Goals Self-Feeding Goal Standby Assistance Grooming Goal Standby Assistance Dressing Goal Minimal Assistance Toileting Goal Minimal Assistance Bathing Goal Minimal Assistance Toilet Transfer Goal Standby Assistance Shower Transfer Goal Standby Assistance Days to Meet Goals 10 Frequency of Treatment Other frequency 5x/week Treatment Plan OT Treatment Plan ADL Training,Functional Cognition Training,Functional Mobility,Patient/Family Education,Discharge Planning Other Treatment Pt to be able to do toileting needs with KARMEN. Recommendations and Next Treatment Focus Discharge Recommendations OT Discharge Home with 24/7 Assist Available,Home Health,SNF Rehab, Recommendations Home vs SNF Transportation Needs Private Vehicle,Wheelchair/Cabulance at Discharge
--- NOTE | 2025-03-18 11:05 | CM.DPC ---
Addendum entered by Briseyda Quintana RN 03/18/25 13:47: Patient's updated on discharge to tomorrow. Original Note: Per Jania with , they can accept PT tomorrow, Friday03/19/2025. PT needs to have a BM today or tomorrow prior to DC.
[2025-03-18] MEDS: MAGNESIUM CITRATE 300 ML SOLUTION PO (12:44)
--- NOTE | 2025-03-18 12:51 | PC.NURSE ---
Addendum entered by Evelyn Bettencourt RN 03/18/25 16:46: Pt now occassionally calling out for wide, ' Redirected easily by watching the news. Call light w/in reach, bed alarm on for pt safety. Continue w/plan of care. Original Note: Pt sitting in chair, Denies discomfort. 1 PA BSC, SL intact/patent. Luna cath (chronic) patent davon urine Call light w/in reach, chair/bed alarm on for pt safety. Continue w/plan of care.
--- NOTE | 2025-03-18 15:03 | PT.IPTN ---
Current Diagnoses Retention of urine, unspecified (03/14/25) Physical Therapy Treatment Note M2 PT-IP Current Condition Start: 03/16/25 10:21 Freq: NEEDED Status: Active Protocol: Document 03/17/25 07:43 AB (Rec: 03/17/25 08:38 [facility] Laptop) Physical Therapy Current Condition Current Condition Evaluation Date 03/16/25 Treatment Diagnosis Weakness, UTI Onset Date 03/14/25 M3 PT-IP Subjective Start: 03/16/25 10:21 Freq: NEEDED Status: Active Protocol: Document 03/18/25 15:03 [facility] (Rec: 03/18/25 15:21 [facility] Desktop) Subjective Physical Therapy Visit Type Type Treatment Note Visit Start Time 14:30 Visit Stop Time 15:03 Notes 33 min Number of PHLEBOTOMY TECHNOLOGIST Visits 0 Physical Therapy Visit Comments Patient Comments He reports feeling like he needs to go the bathroom Patient Goals be able to go home Therapy Pain Assessment Pain When Pain Assessed During Mobility Pain Present Pain Present Denied Pain M4 PT-IP Mobility and Gait Start: 03/16/25 10:21 Freq: NEEDED Status: Active Protocol: Document 03/18/25 15:03 [facility] (Rec: 03/18/25 15:21 [facility] Desktop) PT-Bed Mobility Assessment Supine to Sit Supine to Sit Standby Assistance Sit to Supine Sit to Supine Standby Assistance Scooting Scooting to Edge of Independent Bed PT-Transfer Assessment Sit to and From Stand Sit to and from Contact Guard Assistance,Minimal Assistance,Use of Stand Upper Extremities Equipment Transfer Assistive Gait Belt,Front Wheeled Walker Device Transfers Transfer Destination Bed,Chair Transfer Technique Stand Step Pivot Transfer Ability Level of Assist Contact Guard Assistance,Minimal Assistance,Use of Upper Extremities Comments Mobility Comments he needs to see the chair or commode to be able to back up and sit safely, if he can't see it he becomes confused. Pt up to bedside commode x 2 this visit for attempt to have BM but only able to pass gas. Gait Assessment Gait Gait Assistance Contact Guard Assist,Minimum Assistance Required: Distance (Feet) 55 Able to Maintain Yes Weight Bearing Status During Gait Assistive Devices Assistive Device Gait Belt,Front Wheeled Walker Orthotic/Prosthetic Yes Devices or Brace: Gait Deviations General Gait Pattern Ataxic,Decreased Feet Clearance Factors Limiting Gait Function Factors Limiting Decreased Activity Tolerance,Decreased Strength, Gait Function Incoordination,Poor Balance,Poor Safety Awareness Comments Gait Comments Pt wearing bilateral AFO's this visit with shoes on. Pt shows ability to clear his feet during gait with AFO's but due to incoordination his feet intermittently scuff on floor. Pt continues to need FWW to manage his balance and fall risks. PT-Balance Assessment Sitting Balance and Reactions Static Sitting Normal Balance Ability Dynamic Sitting Good Balance Ability Standing Balance and Reactions Static Standing Good Balance Ability Dynamic Standing Fair Balance Ability Device Used FWW M5 PT-IP Objective Assessments Start: 03/16/25 10:21 Freq: NEEDED Status: Active Protocol: Document 03/16/25 09:45 [facility] (Rec: 03/16/25 10:46 [facility] Desktop) Orientation Orientation/Cognition Level of Alertness Alert Orientation Name Safety Awareness Decreased Safety Awareness Memory Description Short Term Impaired Comments pt unable to give baseline information, he is pleasant and cooperative, he can not recall he has hammond catheter and frequently asks to go to the toilet to urinate, he is mild to moderately hard of hearing, his response to questions is slow, he was only able to give his first name when asked (wrist band used to verify pt identity), Gross Range of Motion Upper Extremity ROM Assessment Within Functional Limits Lower Extremity ROM Assessment Within Functional Limits Strength Upper Extremity Strength Assessment Bilaterally Impaired Hand atrophy and weakness, see OT, pt uses compensations to hold objects Lower Extremity Strength Assessment Bilaterally Impaired Hip hip flexion right 5/5, left 4+/5 Knee knee ext right 5/5, left 4+/5 Ankle DF right 0/5 and left 1/5 Coordination Assessment Gross Coordination Gross Coordination Impaired Assessment Finger to Nose Test Minimal Impairment Heel on Mcdaniels Test Moderate Impairment Coordination drop feet prevent toe tapping test Comments Sensation Assessment Sensation Gross Sensation WNL Comments Sensation Comments he reports no numbness/tingling Muscle Tone Muscle Tone WNL Yes M6 PT-IP Treatment Start: 03/16/25 10:21 Freq: NEEDED Status: Active Protocol: Document 03/18/25 15:03 [facility] (Rec: 03/18/25 15:21 [facility] Desktop) Physical Therapy Treatment Exercises Exercises Heel Slides,Straight Leg Raises,Supine Hip Abduction, Short Arc Quads,Shoulder Flexion Education Education Provided Safety Other Treatments Other Treatment exercises completed in bed x 10 reps each ex, he needs Performed physical demonstration and verbal cues to be able to complete his exercises M7 PT-IP Assessment and Plan Start: 03/16/25 10:21 Freq: NEEDED Status: Active Protocol: Document 03/18/25 15:03 [facility] (Rec: 03/18/25 15:21 [facility] Desktop) PT Summary Assessment and Plan Summary Impairments Strength,Balance,Coordination,Cognition,Bed Mobility, Transfers,Gait,Activity Tolerance Progress Towards Progressing Toward Goals Goals Assessment Summary Tripp is pleasant and cooperative with therapy. His initiation is limited and he requests instructions on what he is to do next. He was able to increase his distance of gait this visit with the FWW but his gait pattern continues to be unsafe with uncoordinated steps and intermittent catching of feet on floor. He forgets that he is in the hospital but does well with verbal reminders. He recognizes his . Pt tolerates wearing bilateral AFO's well for mobility/gait. Continue to recommend SNF rehab at discharge for strengthening and progression of gait. Pt was ambulating independently on level surfaces without a device at baseline. 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
[2025-03-18 20:00] VITALS: BP 144/67; PULSE 77; RESP 12; TEMP 36.6; O2SAT 98
[2025-03-19 08:49] VITALS: BP 133/83; PULSE 74; RESP 16; TEMP 36.2; O2SAT 100
[2025-03-19] MEDS: TAMSULOSIN 0.4 MG CAPSULE 0.8 MG PO (08:56)
[2025-03-19] MEDS: FINASTERIDE 5 MG TABLET PO (08:56)
[2025-03-19] MEDS: SERTRALINE 50 MG TABLET 25 MG PO (08:56)
[2025-03-19] MEDS: HEPARIN 5,000 UNIT/ML VIAL 5000 UNIT SUBCUT (08:57)
--- NOTE | 2025-03-19 09:29 | PC.NURSE ---
Addendum entered by Evelyn Bettencourt RN 03/19/25 12:21: Attempted multiple times to call report No answer Addendum entered by Evelyn Bettencourt RN 03/19/25 11:37: Pt transpertation here D/C in stable status Original Note: Pt sitting in chair. Denies discomfort. Lungs clear, Working w/ PT Luna cath patent clear, davon urine Pt planning D/C to SNF today. Call light w/in reach, chair alarm on for pt safety. Continue w/plan of care.
--- NOTE | 2025-03-19 09:40 | PT.IPTN ---
Current Diagnoses Retention of urine, unspecified (03/14/25) Physical Therapy Treatment Note M2 PT-IP Current Condition Start: 03/16/25 10:21 Freq: NEEDED Status: Active Protocol: Document 03/17/25 07:43 AB (Rec: 03/17/25 08:38 AB Laptop) Physical Therapy Current Condition Current Condition Evaluation Date 03/16/25 Treatment Diagnosis Weakness, UTI Onset Date 03/14/25 M3 PT-IP Subjective Start: 03/16/25 10:21 Freq: NEEDED Status: Active Protocol: Document 03/19/25 09:40 [facility] (Rec: 03/19/25 11:29 [facility] Desktop) Subjective Physical Therapy Visit Type Type Treatment Note Visit Start Time 09:10 Visit Stop Time 09:40 Notes 30 minutes Number of CLOTHES WRINGER Visits 0 Physical Therapy Visit Comments Patient Comments He has no complaints this morning. Patient Goals be able to go home Therapy Pain Assessment Pain When Pain Assessed During Mobility Pain Present Pain Present Denied Pain M4 PT-IP Mobility and Gait Start: 03/16/25 10:21 Freq: NEEDED Status: Active Protocol: Document 03/19/25 09:40 [facility] (Rec: 03/19/25 11:29 [facility] Desktop) PT-Transfer Assessment Sit to and From Stand Sit to and from Contact Guard Assistance,Minimal Assistance,Use of Stand Upper Extremities Equipment Transfer Assistive Gait Belt,Front Wheeled Walker Device Transfers Transfer Destination Chair Transfer Technique Stand Step Pivot Transfer Ability Level of Assist Contact Guard Assistance,Minimal Assistance,Use of Upper Extremities Comments Mobility Comments Pt sitting up in chair this visit with chair alarm in place and call light close. Noted he needs encouragement to eat his breakfast this morning. His coffee needed to be placed in paper cup instead of ceramic mug to better manage his hand weakness. Gait Assessment Gait Gait Assistance Contact Guard Assist,Minimum Assistance Required: Distance (Feet) 80 Able to Maintain Yes Weight Bearing Status During Gait Assistive Devices Assistive Device Gait Belt,Front Wheeled Walker Orthotic/Prosthetic Yes Devices or Brace: Gait Deviations General Gait Pattern Ataxic,Decreased Feet Clearance Factors Limiting Gait Function Factors Limiting Decreased Activity Tolerance,Decreased Strength, Gait Function Incoordination,Poor Balance,Poor Safety Awareness Comments Gait Comments Pt wearing bilateral AFO's this visit with shoes on. Pt shows ability to clear his feet during gait with AFO's but due to incoordination his feet intermittently scuff on floor. Pt continues to need FWW to manage his balance and fall risks. Pt had loss of balance when he took his hand off the FWW during gait. PT-Balance Assessment Sitting Balance and Reactions Static Sitting Normal Balance Ability Dynamic Sitting Good Balance Ability Standing Balance and Reactions Static Standing Good Balance Ability Dynamic Standing Fair Balance Ability Device Used FWW Comments Other Balance Tests/ standing balance training: standing without UE support Deviations/Treatment : M5 PT-IP Objective Assessments Start: 03/16/25 10:21 Freq: NEEDED Status: Active Protocol: Document 03/16/25 09:45 [facility] (Rec: 03/16/25 10:46 [facility] Desktop) Orientation Orientation/Cognition Level of Alertness Alert Orientation Name Safety Awareness Decreased Safety Awareness Memory Description Short Term Impaired Comments pt unable to give baseline information, he is pleasant and cooperative, he can not recall he has hammond catheter and frequently asks to go to the toilet to urinate, he is mild to moderately hard of hearing, his response to questions is slow, he was only able to give his first name when asked (wrist band used to verify pt identity), Gross Range of Motion Upper Extremity ROM Assessment Within Functional Limits Lower Extremity ROM Assessment Within Functional Limits Strength Upper Extremity Strength Assessment Bilaterally Impaired Hand atrophy and weakness, see OT, pt uses compensations to hold objects Lower Extremity Strength Assessment Bilaterally Impaired Hip hip flexion right 5/5, left 4+/5 Knee knee ext right 5/5, left 4+/5 Ankle DF right 0/5 and left 1/5 Coordination Assessment Gross Coordination Gross Coordination Impaired Assessment Finger to Nose Test Minimal Impairment Heel on Mcdaniels Test Moderate Impairment Coordination drop feet prevent toe tapping test Comments Sensation Assessment Sensation Gross Sensation WNL Comments Sensation Comments he reports no numbness/tingling Muscle Tone Muscle Tone WNL Yes M6 PT-IP Treatment Start: 03/16/25 10:21 Freq: NEEDED Status: Active Protocol: Document 03/19/25 09:40 [facility] (Rec: 03/19/25 11:29 [facility] Desktop) Physical Therapy Treatment Exercises Exercises Seated Knee Flexion/Extension,Shoulder Flexion Education Education Provided Safety Other Treatments Other Treatment exercises completed in chair x 10 reps each ex, he Performed needs physical demonstration and verbal cues to be able to complete his exercises: seated hip flexion sit-stand with UE support 3 x 5 reps Standing marching with FWW x 10 reps each LE M7 PT-IP Assessment and Plan Start: 03/16/25 10:21 Freq: NEEDED Status: Active Protocol: Document 03/19/25 09:40 [facility] (Rec: 03/19/25 11:29 [facility] Desktop) PT Summary Assessment and Plan Summary Impairments Strength,Balance,Coordination,Cognition,Bed Mobility, Transfers,Gait,Activity Tolerance Progress Towards Progressing Toward Goals Goals Assessment Summary Tripp is alert and shows good effort with Physical Therapy treatment. He continues to present with impaired cognition but he is cooperative and able to follow simple instructions. He tolerated increased distance of gait today but continues to have decreased standing balance and impaired coordination that place him at increased risks for falls. Continue to recommend SNF rehab at discharge. He is not at his baseline for mobility and gait. 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
--- NOTE | 2025-03-19 11:04 | PM.DS.1 ---
History of Present Illness History of Present Illness Chief complaint: Worsening weakness. Narrative: Per H&P: The patient was a an 89-year-old male who was brought in for weakness. He was status post bilateral ureter stent placement at [facility] 4 weeks ago. The patient was followed by Dr. Sanders of Urology. In the emergency department, he was found to have evidence of urine retention. A Luna can not be placed and Urology performed cystoscopy and placed a catheter over a wire with 1 L of urine out. Imaging revealed hydroureter nephrosis as well as evidence of constipation and large rectal fecal burden. He was takes care of him, notes he has been weak for the last several days and had anorexia. The patient does have severe dementia and really can not communicate. He does appear comfortable. Discharge Providers Provider Date of admission: 03/14/25 12:33 Discharge Date: 03/19/25 Primary care physician: Dario Villar MD Consults: 03/14/25 09:[address] [facility] - Train Dispatcher Stat Comment: Train Dispatcher Consult needed for:: Other reason (Comment) Comment: may need some extra resources at home 03/14/25 14:35 Consult to Dietitian, Adult Routine Comment: Reason For Exam: dementia, poor intake, significant weight loss 03/15/25 10:07 Consult to Occupational Therapy Evaluate & Treat Comment: Physician Instructions: Evaluate and treat Consult to Physical Therapy Evaluate & Treat Comment: Physician Instructions: Evaluate and Treat 03/16/25 10:41 Consult to Pharmacy Routine Comment: high fall risk Discharge provider: Dorothea Jha MD Summary Hospital Course Discharge Diagnosis: 1. Urinary tract infection, ruled out 2. Urinary retention, status post Luna catheter placement 3. Nephrolithiasis with recent bilateral ureteral stent placement 4. Constipation, resolving 5. Severe dementia, stable 6. Severe protein calorie malnutrition with 14% weight loss in 1 month 7. Generalized weakness/deconditioning Hospital Course: Patient was admitted with presumptive urinary tract infection and urinary retention requiring a Luna catheter placement. Upon Luna catheter placement there was 1 L of urine output. He was also noted to have large fecal rectal burden. He would recently undergone bilateral ureteral stent placement for nephrolithiasis by his urologist at [facility]. They are plans in place for lithotripsy to be done in the coming weeks. After collaborating with his urologist, it was determined the Luna catheter should remain in place as it would be very difficult to replace Luna catheter as he has a false lumen and a new catheter would need to be placed via cystoscopy if he were to fail a voiding trial. Over the course of his hospitalization, patient was treated with magnesium citrate with ultimate resolution of his constipation. He tolerated the Luna catheter well. He was initially placed on antibiotics. However urine cultures were negative. Urinary tract infection was ruled out. Plans are in place for a voiding trial under the direction of his outpatient urologist, Dr. Maldonado. He will follow-up with his urologist as planned for his lithotripsy. He is discharged in stable condition. Status at Discharge Cognitive/behavioral status at discharge: at baseline, confused Functional status at discharge: uses cane/walker Overall status at discharge: patient is progressing back to baseline Time Spent with Patient Time spent: Greater than 30 minutes Exam Vital Signs (past 8 hours): - 03/19/25 08:49 Temperature 97.2 F L Pulse Rate 74 Respiratory Rate 16 Blood Pressure 133/83 Pulse Oximetry 100 Oxygen Flow Rate 0 Oxygen Delivery Method Room Air Oxygen Flow Rate 0 Narrative Exam Narrative: GEN: Alert and oriented x 1, NAD HEENT:NC, Face symmetric CHEST: Respiratory excursions symmetric, CTAB CV: RRR, no M/R/G ABD: Soft, NT/ND, BT present in all 4 quadrants, no organomegaly or masses EXTR: warm, well perfused, no C/C/E SKIN: warm and dry, no rash NEURO: Alert and oriented x 3, nonfocal Objective Labs 03/17/25 04:50 03/17/25 04:50 PFSH Social History household members: spouse Smoking Status: Never smoker alcohol intake: former Discharge Plan Discharge Plan Patient Disposition: SNF Transfer to: [facility] Under care of provider: Facility MD Provider Discharge Comment: You were admitted with urinary retention requiring a Luna catheter placement. There was initial concern for urinary tract infection. However, the urine cultures were negative. There was no evidence for an infection. Urine no longer on antibiotics. The Luna catheter will remain in place until Dr. Maldonado instructs that the catheter is to be removed and a voiding trial should be complete. Instructions for [facility] nursing Facility: Please schedule a follow-up appointment with [facility]. Please confer with Dr. Maldonado's office regarding appropriate timing for a voiding trial. Please initiate facility bowel protocol, and monitor constipation. Return to the ED: Increased shortness of breath/chest pain. Inability to hold down food/fluids/medications. Fevers/chills. Discharge orders & Medications Prescriptions: New acetaminophen 325 mg Tablet 650 mg PO Q6H PRN (Reason: Fever/Mild Pain (1-3)) Qty: 30 0RF senna 8.6 mg capsule 8.6 mg PO BID Qty: 60 0RF Continued tamsulosin 0.4 mg capsule 0.8 mg PO DAILY sertraline 25 mg tablet 25 mg PO DAILY finasteride 5 mg tablet 5 mg PO DAILY Follow up/Referrals: Ruddy Medina MD [Non-Staff, Medical] Dario Villar MD [Primary Care Provider, Internal Medicine] Discharge Health Status Multidrug resistant organism: No MDRO Precautions: [place] Diet/Activity/Treatments Diet: Diet as Tolerated and Regular Liquid consistency: Normal/Thin Food texture: Regular Activity: As tolerated, SBA w/FWW; Per PT/OT Catheter: 2-way Luna Catheter comment: Pls provide a leg bag for the daytime Oxygen: N/A Special Rehabilitation Services Reason for rehabilitation: Recovery r/t decondition Rehab type: Physical therapy and Occupational therapy Visit Report/Discharge Packet Stand Alone Forms: Patient Portal/API Discharge Data Primary Care Provider: Dario Villar Quality VTE Deep Vein Thrombosis/Pulmonary Embolism Present on Admission: No
--- NOTE | 2025-03-19 11:23 | CM.DPC ---
DCP Discharge to SNF Per MD, pt medically stable to d/c to SNF today and placed discharge orders. Spouse bedside and aware and remains agreeable with discharge plan. SW confirmed with [facility] that they can still accept today and transport scheduled for 1130. SW had to fax PAS[facility], signed med list, no scripts needed, and orders to [facility] to review. Discharge summary secure emailed to [facility]. Updated [employer] TECHNICIAN, tire trucker, and RN and provided number to call report. THEODORE Fitch
== END 2025-03-19 11:30 | DRG 694 ==
LOC: ED 03-14 03:46 → AC 03-14 13:08 → ICU 03-14 13:22 → AC 03-15 11:48
PROVIDERS: Family Medicine; Admitting Provider Hospitalist; Emergency Provider Emergency Medicine; PCP Internal Medicine; Referring Provider Emergency Medicine; Visit Provider Hospitalist
DX: N13.2 Hydronephrosis with renal and ureteral calculous obstruction (principal); E46 Unspecified protein-calorie malnutrition; R33.9 Retention of urine, unspecified; R53.1 Weakness; F03.C0 Unspecified dementia, severe, without behavioral disturbance, psychotic disturbance, mood disturbance, and anxiety; K59.00 Constipation, unspecified; N36.5 Urethral false passage; E83.52 Hypercalcemia; K52.89 Other specified noninfective gastroenteritis and colitis; Z98.890 Other specified postprocedural states; Z68.22 Body mass index [BMI] 22.0-22.9, adult
CPT/HCPCS: 36415; 51798; 71045; 74018; 74177; 80048; 80053; 81003; 81015; 82140; 82310; 83605; 83970; 84153; 84154; 85025; 87086; 87797; 96361; 96365; 96375; 97110; 97116; 97162; 97166; 97530; 97535; 99284; J0696; J1200; J1644; J1790; J7030; J7040; J7050; Q9967

== ENCOUNTER 2025-04-04 17:00 | Emergency (ER) | payer MEDICARE, OTHER, SELFPAY ==
[2025-03-14 14:23] VITALS: BMI 22.4
[2025-04-04 17:58] VITALS: BP 131/74; PULSE 105; RESP 17; TEMP 36.5; O2SAT 98
--- NOTE | 2025-04-04 18:26 | ED.RECABL ---
HPI - Recheck/Abnormal Lab/Rx <May Tate PA-C - Last Filed: 04/05/25 12:57> General Chief Complaint: Recheck/Abnormal Lab/Rx Stated Complaint: PC called ED, caregiver doesn't know, wellness chk Time Seen by Provider: 04/04/25 18:04 Source: patient Mode of arrival: Ambulatory History of Present Illness HPI narrative: 89-year-old male with past medical history dementia presents to the ED for a catheter placement. Patient was hospitalized for urinary retention, hydroureter nephrosis, large rectal fecal burden from constipation and discharged home with a catheter on 03/19/2025. Patient lives at [facility], pulled out his catheter by accident today and presents to the ED for a new catheter placement. Patient is severely demented and HPI and ROS obtained from [facility]. Related Data Home Medications ?Medication ?Instructions ?Recorded ?Confirmed finasteride 5 mg tablet 5 mg PO DAILY 03/14/25 03/14/25 sertraline 25 mg tablet 25 mg PO DAILY 03/14/25 03/14/25 tamsulosin 0.4 mg capsule 0.8 mg PO DAILY 03/14/25 03/14/25 Previous Rx's ?Medication ?Instructions ?Recorded acetaminophen 325 mg tablet 650 mg (2 x 325 mg) PO Q6H PRN 03/19/25 Fever/Mild Pain (1-3) #30 tabs sennosides 8.6 mg capsule (senna) 8.6 mg PO BID #60 caps 03/19/25 Allergies Allergy/AdvReac Type Severity Reaction Status Date / Time No Known Drug Allergies Allergy Verified 04/04/25 18:01 Review of Systems <May Tate PA-C - Last Filed: 04/05/25 12:57> Review of Systems Narrative: ROS obtained from sound view ROS Unobtainable: Unobtainable due to mental condition Constitutional Constitutional: Denies chills, Denies fatigue, Denies fever(s), Denies frequent falls, Denies lethargy and Denies weakness Eyes Eyes: Denies change in vision, Denies eye discharge, Denies irritation and Denies loss of vision ENT Ears, Nose, Mouth, and Throat: Denies change in voice, Denies dizziness, Denies neck pain, Denies sore throat and Denies throat swelling Cardiovascular Cardiovascular: Denies chest pain, Denies irregular heart rhythm, Denies lightheadedness, Denies palpitations, Denies dyspnea, Denies dyspnea on exertion and Denies orthopnea Respiratory Respiratory: Denies cough, Denies dyspnea, Denies dyspnea on exertion and Denies wheezing Gastrointestinal Gastrointestinal: Denies abdominal pain, Denies change in bowel habits, Denies diarrhea, Denies nausea and Denies vomiting Musculoskeletal Musculoskeletal: Denies neck pain and Denies numbness Integumentary/Breasts Skin/Breast: Denies pruritus, Denies erythema, Denies rash and Denies wounds Neurologic Neurologic: Denies behavioral changes, Denies confusion, Denies dizziness, Denies frequent falls, Denies loss of vision, Denies numbness and Denies weakness Psychiatric Psychiatric: Denies anxiety, Denies behavioral changes, Denies confusion, Denies depression, Denies homicidal ideation and Denies suicidal ideation Endocrine Endocrine: Denies fatigue, Denies flushing and Denies palpitations Hematologic/Lymphatic Hematologic/Lymphatic: Denies easy bruising Allergic/Immunologic Allergic/Immunologic: Denies urticaria, Denies throat swelling and Denies wheezing Patient History <May Tate PA-C - Last Filed: 04/05/25 12:57> Social History household members: spouse Smoking Status: Smoker, status unknown alcohol intake: former Smoking Status: Smoker, status unknown Exam <May Tate PA-C - Last Filed: 04/05/25 12:57> Initial Vital Signs Initial Vital Signs: Vital Signs Temperature 97.7 F 04/04/25 17:58 Pulse Rate 105 H 04/04/25 17:58 Respiratory Rate 17 04/04/25 17:58 Blood Pressure 131/74 04/04/25 17:58 Pulse Oximetry 98 04/04/25 17:58 Oxygen Delivery Method Room Air 04/04/25 17:58 <Analilia Aparicio DO - Last Filed: 04/09/25 00:20> Initial Vital Signs Initial Vital Signs: Vital Signs Temperature 97.7 F 04/04/25 17:58 Pulse Rate 105 H 04/04/25 17:58 Respiratory Rate 17 04/04/25 17:58 Blood Pressure 131/74 04/04/25 17:58 Pulse Oximetry 98 04/04/25 17:58 Oxygen Delivery Method Room Air 04/04/25 17:58 Course <May Tate PA-C - Last Filed: 04/05/25 12:57> Orders Ordered: ED Orders 04/04/25 19:22 CT kidney ureter bladder (KUB) Stat Vital Signs Vital signs: Vital Signs - 8 hr 04/04/25 17:58 04/04/25 20:07 04/04/25 21:41 Temperature 97.7 F 98.5 F Pulse Rate 105 H 80 Respiratory Rate 17 20 Blood Pressure 131/74 126/69 Pulse Oximetry 98 98 Oxygen Delivery Method Room Air Room Air <Analilia Aparicio DO - Last Filed: 04/09/25 00:20> Orders Ordered: ED Orders 04/04/25 19:22 CT kidney ureter bladder (KUB) Stat Vital Signs Vital signs: Vital Signs - 8 hr 04/04/25 17:58 04/04/25 20:07 04/04/25 21:41 Temperature 97.7 F 98.5 F Pulse Rate 105 H 80 Respiratory Rate 17 20 Blood Pressure 131/74 126/69 Pulse Oximetry 98 98 Oxygen Delivery Method Room Air Room Air MDM - Recheck/Abnormal Lab/Rx <May Tate PA-C - Last Filed: 04/05/25 12:57> MDM Narrative Medical decision making narrative: 89-year-old male with past medical history dementia presents to the ED for a catheter placement. Patient is not in any distress. Will put in catheter, discharge home. Medical records reviewed: Yes <Analilia Aparicio DO - Last Filed: 04/09/25 00:20> [facility] Narrative Medical decision making narrative: 89-year-old male with past medical history dementia presents to the ED for a catheter placement. Patient is not in any distress. Will put in catheter, discharge home. Medical records reviewed: Yes CT KUB shows bilateral ureterovesicular stents minimal to mild hydronephrosis slightly more prominent when compared to prior exam bladder is distended catheter appears determined in the prostate gland of the margin of the bladder ureterovesicular stents are present within the bladder as well as small dependent stone. Reviewed patient's history had seen Dr. Delgado and required cystoscopy and guidewire placed catheter secondary to multiple false passages 03/14/2025. Stents were placed before at [facility] had hospitalization from 03/14 through 11 15 in the discharge home for UTI. Spoke with Dr. Delgado at 2034. He will come to evaluate the patient as his catheter is not currently draining. Dr. Delgado in the department @ 2101, was able to advance catheter and draining urine. Patient's catheter was not draining appropriately and felt appropriate for discharge back to his facility. Discharge Plan Departure Patient Disposition: Home Clinical Impression: Luna catheter problem Activity Restrictions/Additional Instructions: Your catheter was replaced here in the department, you have ureteral stents bilaterally and multiple false lumens from a prior episodes so if you have difficulty placing a catheter please make sure this information is shared when the patient is sent back to the emergency department. Prescriptions: No Action tamsulosin 0.4 mg capsule 0.8 mg PO DAILY sertraline 25 mg tablet 25 mg PO DAILY finasteride 5 mg tablet 5 mg PO DAILY acetaminophen 325 mg Tablet 650 mg PO Q6H PRN (Reason: Fever/Mild Pain (1-3)) Qty: 30 0RF senna 8.6 mg capsule 8.6 mg PO BID Qty: 60 0RF Referrals: Dario Villar MD [Primary Care Provider, Internal Medicine] Stand Alone Forms: Patient Portal/API
--- NOTE | 2025-04-04 19:22 | DI.CT.S_ITS ---
PROCEDURE: CT KIDNEY URETER BLADDER (KUB) INDICATIONS: hammond catheter not draining, ? placement TECHNIQUE: CT of the abdomen and pelvis was obtained without intravenous contrast. Coronal and sagittal reformats were performed. For radiation dose reduction, the following was used: automated exposure control, adjustment of mA and/or kV according to patient size. COMPARISON: [facility], CT, CT ABDOMEN PELVIS W CON, 03/14/2025, 8:52. FINDINGS: Image quality: Diagnostic. Lower Chest: No significant findings. ABDOMEN: Liver: No contour-deforming mass. Gallbladder: No radiopaque gallstones or wall thickening. Biliary ducts: No biliary dilation. Pancreas: No ductal dilation. Spleen: Size is within normal limits. Adrenal Glands: No adrenal nodules. Kidneys and Ureters: Bilateral ureterovesicular stents are present. Multiple calcifications are present within the kidneys bilaterally. The largest on the right is in the inferior pole measuring 1.1 cm Hounsfield units 799. Largest on the left measures 6 mm Hounsfield units 710. There are prominent extrarenal pelvis bilaterally most significant on the left. Renal cysts are present. There is an overall appearance of mild hydronephrosis. Stomach and Bowel: Normal colonic caliber, without significant wall thickening. Peritoneum: No abnormal intraperitoneal fluid. No free air. Ventral Wall: No significant hernia. Abdominal Nodes: No retroperitoneal or mesenteric adenopathy by size criteria. Vessels: Aorta and inferior vena cava are normal in size. PELVIS: Pelvic Organs: Unremarkable. Bladder: Bladder is distended. Hammond catheter with balloon appears to terminate within the prostate gland at the margin of the posterior bladder. Minimal dependent calcifications are present within the bladder. Pelvic Nodes: No enlarged lymph nodes. Miscellaneous: No inguinal hernias are seen. Bones: No aggressive osseous abnormality. IMPRESSION: Bilateral ureterovesicular stents. Minimal to mild hydronephrosis slightly more prominent when compared to prior exam. Bladder is distended. Hammond catheter appears to terminate in the prostate gland at the margin of the bladder. Ureterovesicular stents are present within the bladder as well as small dependent stones. Dictated by: Lupe Khan M.D. on 04/04/2025 at 19:52 Approved by: Lupe Khan M.D. on 04/04/2025 at 19:56
--- NOTE | 2025-04-04 19:23 | W.PC.EDHO ---
Report received from JORGE Reyes
[2025-04-04 20:07] VITALS: BP 126/69; PULSE 80; RESP 20; TEMP 36.9; O2SAT 98
--- NOTE | 2025-04-04 21:04 | P.CONS_ITS ---
History of Present Illness Consult details Date Patient Seen: 04/04/25 Time Patient Seen: 21:04 Chief complaint: PC called ED, caregiver doesn't know, wellness chk Narrative: 89 y/o M brought into ER for evaluation of worsening weakness and dementia in early Mar. He is followed by Urology clinic at [facility]. He is very confused and not able to answer questions. His evaluation at ER was notable for a WBC of 11.6, sCr of 1.05 and urinary retention. Multiple attempts were made by nursing staff to place a hammond catheter, Urology was ultimately consulted for assistance. A cystoscopy was performed and he was noted to have multiple false passages within his prostatic urethra, a [place] tip catheter was ultimately placed. He traumatically removed his hammond catheter earlier today. Attempts by nursing to place his hammond catheter were ultimately unsuccessful. He had a CT Abd/Pel that was notable for inflation of his hammond balloon within his prostatic urethra. Urology was consulted for assistance. Meds Home Medications and Allergies Home Medications ?Medication ?Instructions ?Recorded ?Confirmed ?Type finasteride 5 mg tablet 5 mg PO DAILY 03/14/2503/14 History sertraline 25 mg tablet 25 mg PO DAILY 03/14/2503/05 History tamsulosin 0.4 mg capsule 0.8 mg PO DAILY 03/14/2502/26 History acetaminophen 325 mg tablet 650 mg (2 x 325 mg) PO Q6H PRN 03/19/25 Rx Fever/Mild Pain (1-3) #30 tabs sennosides 8.6 mg capsule (senna) 8.6 mg PO BID #60 ca ps 03/19/25 Rx Allergies Allergy/AdvReac Type Severity Reaction Status Date / Time No Known Drug Allergies Allergy Verified 04/04/25 18:01 Review of Systems Review of Systems Narrative: Unable to obtain secondary to his demented state. Exam Vital Signs (past 8 hours): - 04/04/25 17:58 04/04/25 20:07 Temperature 97.7 F 98.5 F Pulse Rate 105 H 80 Respiratory Rate 17 20 Blood Pressure 131/74 126/69 Pulse Oximetry 98 98 Oxygen Delivery Method Room Air Oxygen Delivery Method Room Air Narrative Exam Narrative: GEN: Alert and oriented X3. No acute distress. Well-nourished. EYES: PERRLA, EOMI. HENT: Moist mucus membranes, no scleral icterus, normal neck ROM. RESP: Unlabored breathing, equal rise and fall of chest bilaterally, no cyanosis appreciated. CV: No peripheral edema, unremarkable heart rate. ABD: Soft, non-tender, non-distended, no palpable masses. : Hammond catheter balloon deflated and hammond was easily advanced into his bladder with drainage of 700 cc's of dark yellow urine. 10cc of sterile water was utilized for balloon insufflation. EXT: No edema, clubbing or cyanosis. SKIN: No rashes or lesions. NEURO: No focal neurologic deficits, CN II-XII grossly intact. PSYCH: Cooperative, appropriate mood and affect. PFS Social History household members: spouse Tobacco & Substance Use Smoking Status: Smoker, status unknown alcohol intake: former Assessment & Plan Assessment and plan (1) Urinary retention: Status: Acute Plan: 89 y/o M w/ worsening weakness and dementia who developed acute urinary retention requiring a cystoscopy and hammond catheter placement due to multiple false passages within his prostatic urethra in Mar. He traumatically removed his hammond catheter earlier today and nursing staff at ER placed a hammond catheter with his balloon insufflated within his prostatic urethra. His balloon was deflated and catheter advanced into his bladder with drainage of 700 cc's of dark yellow urine. 10cc of sterile water was utilized for balloon insufflation. He should follow-up with his Urology team at [facility] for catheter management. Time-Based Coding :: [TOTAL MINUTES] spent with patient and on the chart (including review of chart, obtaining history, exam, reviewing outside data, placing orders, documenting exam and treatment plan, and counseling patient) on [DATE]. PROFEE Charge Codes Inpatient or Observation consultation: [id number]
== END 2025-04-04 21:46 | disposition home or self-care (01) ==
PROVIDERS: Emergency Provider Emergency Medicine; PCP Internal Medicine
DX: T83.028A Displacement of other urinary catheter, initial encounter (principal); R33.9 Retention of urine, unspecified
CPT/HCPCS: 51702; 74176; 99281; 99284